=== PATIENT | male | born 1970 | race African-American/Black ===

== ENCOUNTER 2016-12-13 18:15 | Emergency (ER) | payer SELFPAY ==
[2016-12-13] MEDS ORDERED: DIAZEPAM INJ 10 MG/2 ML DISP.SYRIN IM ONE (19:24)
--- NOTE | 2016-12-13 19:26 | ER Document Report ---
ED General - General Chief Complaint: Arm Pain Stated Complaint: RIGHT HAND NUMBNESS Time Seen by Provider: 12/13/16 19:13 Notes: Patient is a 46-year-old male who comes emergency department for chief complaint of worsening symptoms of shooting numbness and tingling sensation mainly in his right arm and right hand, occasionally also feels that his left arm/hand, states he also occasionally feels tingling in his feet. He admits that he has difficulty with rotation of the right shoulder and had an injury to this while lifting at work about 2 weeks ago. Denies any impact injury to the shoulder. He denies headache, visual changes, denies any other sources of pain. States that although he has had increased shoulder pain for the past 2 weeks he has had these symptoms ongoing for months. No daily medications, denies any known past medical history. He smokes one half pack per day. TRAVEL OUTSIDE OF THE [place] IN LAST 30 DAYS: No - Related Data Allergies/Adverse Reactions: FISH Allergy (Uncoded 12/13/16 18:23) Past Medical History - General Information source: Patient - Social History Smoking Status: Current Every Day Smoker Chew tobacco use (# tins/day): No Frequency of alcohol use: Social Drug Abuse: None Lives with: Family Family History: Reviewed & Not Pertinent Patient has suicidal ideation: No Patient has homicidal ideation: No - Medical History Medical History: Negative Renal/ Medical History: Denies: Hx Peritoneal Dialysis Surgical Hx: Negative - Immunizations Immunizations up to date: Yes Hx Diphtheria, Pertussis, Tetanus Vaccination: Yes Review of Systems - Review of Systems Constitutional: No symptoms reported EENT: No symptoms reported Cardiovascular: No symptoms reported Respiratory: No symptoms reported Gastrointestinal: No symptoms reported Genitourinary: No symptoms reported Male Genitourinary: No symptoms reported Musculoskeletal: See HPI Skin: No symptoms reported Hematologic/Lymphatic: No symptoms reported Neurological/Psychological: See HPI Physical Exam - Vital signs Vitals: Temp Pulse Resp BP Pulse Ox 98.0 F 75 16 192/111 H 98 12/13/16 18:23 12/13/16 18:23 12/13/16 18:23 12/13/16 18:23 12/13/16 18:23 Interpretation: Normal - General General appearance: Appears well In distress: None - HEENT Head: Normocephalic, Atraumatic Eyes: Normal Conjunctiva: Normal Extraocular movements intact: Yes Eyelashes: Normal Pupils: PERRL Nasal: Normal Mouth/Lips: Normal Mucous membranes: Normal Pharynx: Normal Neck: Normal - Respiratory Respiratory status: No respiratory distress Chest status: Nontender Breath sounds: Normal. No: Decreased air movement, Wheezing Chest palpation: Normal - Cardiovascular Rhythm: Regular. No: Tachycardia Heart sounds: Normal auscultation, S1 appreciated, S2 appreciated Murmur: No - Abdominal Inspection: Normal Distension: No distension Bowel sounds: Normal Tenderness: Nontender. No: Tender, Guarding Organomegaly: No organomegaly - Back Back: Normal, Nontender. 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 General lower extremity: Normal inspection, Nontender, Normal color, Normal ROM , Normal temperature, Normal weight bearing. No: Mabel's sign - Neurological Neuro grossly intact: Yes Cognition: Normal Orientation: AAOx4 Trout Coma Scale Eye Opening: Spontaneous [place] Coma Scale Verbal: Oriented Shavonne Coma Scale Motor: Obeys Commands Trout Coma Scale Total: 15 Speech: Normal Motor strength normal: LUE, RUE, LLE, RLE Sensory: Normal - Psychological Associated symptoms: Normal affect, Normal mood - Skin Skin Temperature: Warm Skin Moisture: Dry Skin Color: Normal Course - Re-evaluation Re-evalutation: Neurological exam is normal. 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 Patient had a lifting injury of the shoulder on exam 2 weeks ago, has deficits in the shoulder on exam, given valium as a result. Patient had near resolution of his symptoms of his right arm/hand/shoulder on re -examination. CBC unremarkable, chemistry shows mildly elevated creatinine at 1.27 with no comparison, electrolytes unremarkable. Patient very hypertensive initially, after he was medicated and comfortable his blood pressure is 150s over 90s. I did discuss treatment of blood pressure to avoid worsening renal functioning, patient referred to primary care, he states he will absolutely follow-up, also states agreement with this. Will treat patient symptomatically for shoulder/trapezius injury, will keep anti-inflammatory to a minimum and use Valium in conjunction, advised him to hydrate well, discussed orthopedic follow- up for additional evaluation and treatment of the shoulder if symptoms continue , given work release. Discussed return precautions, patient states understanding and agreement. - Vital Signs Vital signs: Temp Pulse Resp BP Pulse Ox 97.7 F 60 15 163/98 H 99 12/13/16 21:56 12/13/16 21:56 12/13/16 21:56 12/13/16 21:56 12/13/16 21:56 - Laboratory Result Diagrams: 12/13/16 19:37 12/13/16 19:37 Laboratory results interpreted by me: 12/13/16 19:37 Creatinine 1.27 H Discharge - Discharge Clinical Impression: Right arm pain, Elevated blood pressure reading Right shoulder pain Qualifiers: Chronicity: acute Qualified Code(s): M25.511 - Pain in right shoulder Condition: Stable Disposition: HOME, SELF-CARE Additional Instructions: The neck imaging is normal. Your symptoms appear to be from a musculoskeletal problem, probably your shoulder injury. Take the naproxen as directed, drink plenty of fluids, rest the shoulder, and try applying heat to your neck and icing your shoulder. If symptoms continue follow up with the Orthopedics referral. Your blood pressure is borderline elevated and your kidney functioning is borderline as well. Please follow up with the community clinic referral for additional management. Return to the ED for any concerning or worsening symptoms. Prescriptions: Diazepam [Valium 5 mg Tablet] 1 - 2 tab PO TID #20 tablet Naproxen [Naprosyn 250 mg Tablet] 250 mg PO DAILY PRN #20 tablet PRN Reason: Forms: Return to Work Referrals: ERICK PENN DO [ACTIVE STAFF] - Follow up as needed [facility] [Provider Group] - Follow up in 1 week
[2016-12-13 20:02] LABS: ABSOLUTE BASOPHILS # (AUTO) 0.1 10^3/uL (0.0-0.2); ABSOLUTE EOSINOPHILS # (AUTO) 0.1 10^3/uL (0.0-0.6); ABSOLUTE LYMPHOCYTES (AUTO) 1.9 10^3/uL (0.5-4.7); ABSOLUTE MONOCYTES (AUTO) 0.5 10^3/uL (0.1-1.4); ABSOLUTE NEUT (AUTO) 2.7 10^3/uL (1.7-8.2); BASOPHILS % (AUTO) 1.2 % (0-2); EOSINOPHILS % (AUTO) 2.1 % (0-6); HEMATOCRIT 47.8 % (37.9-51.0); HEMOGLOBIN 15.9 g/dL (13.5-17.0); HGB HCT DIFFERENCE -0.1; LYMPHOCYTES % (AUTO) 36.5 % (13-45); MEAN CORPUSCULAR HEMOGLOBIN 32.2 pg (27.0-33.4); MEAN CORPUSCULAR HGB CONC 33.3 g/dL (32.0-36.0); MEAN CORPUSCULAR VOLUME 97 fl (80-97); MONOCYTES % (AUTO) 9.4 % (3-13); RED BLOOD COUNT 4.95 10^6/uL (4.35-5.55); SEGMENTED NEUTROPHILS % (AUTO) 50.8 % (42-78); WHITE BLOOD COUNT 5.3 10^3/uL (4.0-10.5)
[2016-12-13 20:16] LABS: ANION GAP 11 (5-19); BLOOD UREA NITROGEN 13 mg/dL (7-20); CALCIUM 9.3 mg/dL (8.4-10.2); CARBON DIOXIDE 27 mmol/L (22-30); CHLORIDE 105 mmol/L (98-107); CREATININE RESULT 1.27 mg/dL (0.52-1.25); GLUCOSE 81 mg/dL (75-110); POTASSIUM 3.9 mmol/L (3.6-5.0); SODIUM 143.3 mmol/L (137-145)
--- NOTE | 2016-12-13 20:59 | RADIOLOGY REPORT (SQ) ---
EXAM DESCRIPTION: CERV SP 4 OR 5 VIEWS COMPLETED DATE/TIME: 12/13/2016 8:32 pm REASON FOR STUDY: tingling and shooting pain into arms/hand COMPARISON: None. NUMBER OF VIEWS: Five views. TECHNIQUE: AP, lateral, obliques and odontoid radiographic images acquired of the cervical spine. LIMITATIONS: None. FINDINGS: MINERALIZATION: Normal. ALIGNMENT: Anatomic. VERTEBRAE: Vertebral bodies of normal height. DISCS: Generally, maintained disc heights. Mild anterior osteophytes throughout. FORAMINA: No osteophytes or foraminal narrowing. LATERAL AND POSTERIOR ELEMENTS: Facets, lateral masses and spinous processes without significant find ings. HARDWARE: None in the spine. SOFT TISSUES: No masses or calcifications. Lung apices clear. OTHER: No other significant finding. IMPRESSION: No spinal malalignment, fracture or bone lesion. Patent neural foramina. TECHNICAL DOCUMENTATION: JOB ID: [id number] [employer]- All Rights Reserved
[2016-12-13 21:57] VITALS: BP 163/98
== END 2016-12-13 22:07 | disposition home or self-care (01) ==
LOC: ER 18:15
DX: R22.0 Localized swelling, mass and lump, head (principal); R03.0 Elevated blood-pressure reading, without diagnosis of hypertension; M79.601 Pain in right arm; F17.200 Nicotine dependence, unspecified, uncomplicated
CPT/HCPCS: 99284; 96372; 36415; 85025; 80048; 72050; J3360

== ENCOUNTER 2017-01-07 11:44 | Emergency (ER) | payer SELFPAY ==
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
[2017-01-07 15:34] VITALS: BP 159/95
== END 2017-01-07 15:20 | disposition home or self-care (01) ==
LOC: ER 11:44
DX: H10.33 Unspecified acute conjunctivitis, bilateral (principal); I10 Essential (primary) hypertension; J02.9 Acute pharyngitis, unspecified; H92.01 Otalgia, right ear; F17.200 Nicotine dependence, unspecified, uncomplicated
CPT/HCPCS: 87070; 87880; 99283

== ENCOUNTER 2017-02-10 15:54 | Emergency (ER) | payer SELFPAY ==
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
[2017-02-10 16:32] LABS: ABSOLUTE LYMPHOCYTES (AUTO) 2.4 10^3/uL (0.5-4.7); ABSOLUTE MONOCYTES (AUTO) 0.5 10^3/uL (0.1-1.4); ABSOLUTE NEUT (AUTO) 3.2 10^3/uL (1.7-8.2); BASOPHILS % (AUTO) 0.8 % (0-2); EOSINOPHILS % (AUTO) 0.5 % (0-6); HEMATOCRIT 45.3 % (37.9-51.0); HEMOGLOBIN 15.5 g/dL (13.5-17.0); HGB HCT DIFFERENCE 1.2; LYMPHOCYTES % (AUTO) 38.8 % (13-45); MEAN CORPUSCULAR HEMOGLOBIN 32.7 pg (27.0-33.4); MEAN CORPUSCULAR HGB CONC 34.2 g/dL (32.0-36.0); MEAN CORPUSCULAR VOLUME 96 fl (80-97); MONOCYTES % (AUTO) 7.3 % (3-13); RED BLOOD COUNT 4.74 10^6/uL (4.35-5.55); RED CELL DISTRIBUTION WIDTH 14.6 % (11.5-14.0); SEGMENTED NEUTROPHILS % (AUTO) 52.6 % (42-78); WHITE BLOOD COUNT 6.2 10^3/uL (4.0-10.5)
[2017-02-10 16:50] LABS: ALANINE AMINOTRANSFERASE 32 U/L (21-72); ALBUMIN 4.7 g/dL (3.5-5.0); ALCOHOL 221 mg/dL (NONE DETECTED); ALKALINE PHOSPHATASE 40 U/L (38-126); ANION GAP 16 (5-19); ASPARTATE AMINO TRANSFERASE 37 U/L (17-59); BILIRUBIN,DIRECT 0.4 mg/dL (0.0-0.4); BILIRUBIN,TOTAL 0.6 mg/dL (0.2-1.3); BLOOD UREA NITROGEN 12 mg/dL (7-20); CALCIUM 9.3 mg/dL (8.4-10.2); CARBON DIOXIDE 23 mmol/L (22-30); CHLORIDE 108 mmol/L (98-107); CREATININE RESULT 1.38 mg/dL (0.52-1.25); GLUCOSE 77 mg/dL (75-110); POTASSIUM 4.1 mmol/L (3.6-5.0); SODIUM 146.5 mmol/L (137-145); TOTAL PROTEIN 7.8 g/dL (6.3-8.2)
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
[2017-02-10 18:13] VITALS: BP 161/91
[2017-02-10 21:38] LABS: AMORPHOUS SEDIMENT,URINE TRACE /HPF; APPEARANCE,URINE TURBID; BILIRUBIN,URINE NEGATIVE (NEGATIVE); GLUCOSE, URINE NEGATIVE (NEGATIVE); KETONES,URINE NEGATIVE (NEGATIVE); LEUKOCYTE ESTERASE,URINE NEGATIVE (NEGATIVE); NITRITE,URINE NEGATIVE (NEGATIVE); PROTEIN,URINE NEGATIVE (NEGATIVE); URINE SPECIFIC GRAVITY 1.025; UROBILINOGEN,URINE NEGATIVE mg/dL (<2.0)
[2017-02-10 21:52] LABS: URINE BARBITURATES SCREEN NEGATIVE; URINE METHADONE SCREEN NEGATIVE; URINE OPIATES LOW NEGATIVE; URINE PHENCYCLIDINE SCREEN NEGATIVE
--- NOTE | 2017-02-11 13:29 | EKG REPORT ---
SEVERITY:- ABNORMAL ECG - SINUS RHYTHM FIRST DEGREE AV BLOCK ABNORMAL T, CONSIDER ISCHEMIA, DIFFUSE LEADS : Confirmed by: Lori Moreno 11-Feb-2017 13:28:45
== END 2017-02-10 18:14 | disposition home or self-care (01) ==
LOC: ER 15:54
DX: F10.129 Alcohol abuse with intoxication, unspecified (principal); Y90.7 Blood alcohol level of 200-239 mg/100 ml; S41.012A Laceration without foreign body of left shoulder, initial encounter; X78.1XXA Intentional self-harm by knife, initial encounter; F17.210 Nicotine dependence, cigarettes, uncomplicated; I10 Essential (primary) hypertension; Z91.013 Allergy to seafood
CPT/HCPCS: 36415; 80053; 80307; 81001; 85025; 93005; 93010; 99284

== ENCOUNTER 2017-07-04 12:10 | Observation (INO) | payer SELFPAY ==
--- NOTE | 2017-07-04 12:50 | EKG REPORT ---
SEVERITY:- ABNORMAL ECG - SINUS RHYTHM ABNORMAL T, CONSIDER ISCHEMIA, ANT-LAT LEADS BORDERLINE ST ELEVATION, ANTERIOR LEADS : Confirmed by: Marilu Shepherd MD 04-Jul-2017 12:48:15
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
--- NOTE | 2017-07-04 13:49 | RADIOLOGY REPORT (SQ) ---
EXAM DESCRIPTION: CHEST PA/LAT COMPLETED DATE/TIME: 07/04/2017 1:39 pm REASON FOR STUDY: Dry cough, smoker, inspiratory expiratory pain COMPARISON: None. EXAM PARAMETERS: NUMBER OF VIEWS: two views TECHNIQUE: Digital Frontal and Lateral radiographic views of the chest acquired. RADIATION DOSE: NA LIMITATIONS: none FINDINGS: LUNGS AND PLEURA: Patchy right lower lobe airspace disease. Lungs and pleural spaces othe rwise clear. MEDIASTINUM AND HILAR STRUCTURES: No masses or contour abnormalities. HEART AND VASCULAR STRUCTURES: Heart normal size. No evidence for failure. BONES: No acute findings. HARDWARE: None in the chest. OTHER: No other significant finding. IMPRESSION: PATCHY RIGHT LOWER LOBE AIRSPACE DISEASE MAY REPRESENT DEVELOPING PNEUMONIA. RECOMMEND FOLLOWUP RADIOGRAPHS 4 TO 6 WEEKS TO ENSURE RESOLUTION. TECHNICAL DOCUMENTATION: JOB ID: [id number] [employer]- All Rights Reserved
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
[2017-07-04] MEDS ORDERED: AMOXICILLIN TR/POT CLAVULANATE 500-125 MG TAB PO ONE (13:55)
[2017-07-04] MEDS ORDERED: ASPIRIN 325 MG TABLET PO ONE (13:55)
[2017-07-04] MEDS ORDERED: AZITHROMYCIN 500 MG in DEXTROSE 5%-WATER 250 ML IV SCH (14:00)
[2017-07-04 14:22] LABS: ABSOLUTE BASOPHILS # (AUTO) 0.1 10^3/uL (0.0-0.2); ABSOLUTE EOSINOPHILS # (AUTO) 0.2 10^3/uL (0.0-0.6); ABSOLUTE LYMPHOCYTES (AUTO) 2.3 10^3/uL (0.5-4.7); ABSOLUTE MONOCYTES (AUTO) 0.4 10^3/uL (0.1-1.4); ABSOLUTE NEUT (AUTO) 4.4 10^3/uL (1.7-8.2); EOSINOPHILS % (AUTO) 2.7 % (0-6); HEMOGLOBIN 15.6 g/dL (13.5-17.0); LYMPHOCYTES % (AUTO) 31.4 % (13-45); MEAN CORPUSCULAR HEMOGLOBIN 31.7 pg (27.0-33.4); MEAN CORPUSCULAR HGB CONC 33.9 g/dL (32.0-36.0); MEAN CORPUSCULAR VOLUME 93 fl (80-97); MONOCYTES % (AUTO) 5.9 % (3-13); PLATELET COUNT 231 10^3/uL (150-450); RED BLOOD COUNT 4.93 10^6/uL (4.35-5.55); RED CELL DISTRIBUTION WIDTH 14.3 % (11.5-14.0); TOTAL CELLS COUNTED % (AUTO) 100 %; WHITE BLOOD COUNT 7.5 10^3/uL (4.0-10.5)
[2017-07-04 15:23] LABS: ALANINE AMINOTRANSFERASE 26 U/L (21-72); ALBUMIN 3.7 g/dL (3.5-5.0); ALKALINE PHOSPHATASE 65 U/L (38-126); ANION GAP 11 (5-19); ASPARTATE AMINO TRANSFERASE 24 U/L (17-59); BILIRUBIN,DIRECT 0.3 mg/dL (0.0-0.4); BILIRUBIN,TOTAL 0.3 mg/dL (0.2-1.3); BLOOD UREA NITROGEN 14 mg/dL (7-20); CALCIUM 9.3 mg/dL (8.4-10.2); CARBON DIOXIDE 26 mmol/L (22-30); CHLORIDE 104 mmol/L (98-107); CREATINE KINASE 299 U/L (55-170); GLUCOSE 80 mg/dL (75-110); POTASSIUM 3.9 mmol/L (3.6-5.0); SODIUM 140.7 mmol/L (137-145); TOTAL PROTEIN 6.4 g/dL (6.3-8.2)
[2017-07-04 15:34] LABS: CREATINE KINASE MB 1.56 ng/mL (<4.55); TROPONIN I 0.015 ng/mL
[2017-07-04] MEDS ORDERED: ONDANSETRON HCL INJ/PF 4 MG/2 ML SDV IV PRN (15:58)
[2017-07-04] MEDS ORDERED: NITROGLYCERIN 0.4 MG/TAB 25 TAB/BOTTLE SL PRN (15:58)
[2017-07-04] MEDS ORDERED: HYDRALAZINE HCL INJ/PF 20 MG/1 ML SDV IV ONE (17:30)
--- NOTE | 2017-07-04 17:49 | RADIOLOGY REPORT (SQ) ---
EXAM DESCRIPTION: CT CHEST WITH COMPLETED DATE/TIME: 07/04/2017 4:59 pm REASON FOR STUDY: chest wall tenderness COMPARISON: Chest x-ray dated 07/04/2017 TECHNIQUE: CT scan of the chest performed using helical scanning technique with dynamic intravenous contrast injection. Images reviewed with lung, soft tissue and bone windows. Reconstructed coronal and sagittal MPR images reviewed. All images stored on PACS. All CT scanners at this facility use dose modulation, iterative reconstruction, and/or weight based d osing when appropriate to reduce radiation dose to as low as reasonably achievable (ALARA). [facility]: Dose Right [facility]: CareDose [facility]: Dose Right [facility]: Teradose 4D [facility]: Seventymm CONTRAST TYPE AND DOSE: contrast/concentration: Isovue 370.00 mg/ml; Total Contrast Delivered: 79.0 ml; Total Saline Delivered: 44.0 ml RENAL FUNCTION: None required. The patient is less than 50 years old. RADIATION DOSE: CT Rad equipment meets quality standard of care and radiation dose reduction techniq ues were employed. CTDIvol: 12.6 mGy. DLP: 492 mGy-cm. . LIMITATIONS: None. FINDINGS: LUNGS AND PLEURA: There are some minimal linear densities in the right lung base most cons istent with atelectatic changes although I cannot exclude a minimal infiltrate. A small focal pneuma tocele is identified in the right lung base posterolaterally. HILAR AND MEDIASTINAL STRUCTURES: No identified masses or abnormal nodes. HEART AND VASCULAR STRUCTURES: No aneurysm or dissection. No central pulmonary emboli. No pericardi al effusion. HARDWARE: None in the chest. UPPER ABDOMEN: No significant findings. Limited exam. THYROID AND OTHER SOFT TISSUES: No masses. No adenopathy. BONES: No significant finding. OTHER: No other significant finding. IMPRESSION: Minimal right basilar densities as noted above. Other findings as noted above. TECHNICAL DOCUMENTATION: JOB ID: [id number] Quality ID # [id number]: Final reports with documentation of one or more dose reduction techniques (e.g., Au tomated exposure control, adjustment of the mA and/or kV according to patient size, use of iterative reconstruction technique) 2010 [employer]- All Rights Reserved
[2017-07-04] MEDS: CLONIDINE HCL 0.1 MG TABLET PO PRN (20:05)
[2017-07-04] MEDS ORDERED: ATORVASTATIN CALCIUM 40 MG TABLET PO SCH (22:00)
[2017-07-05 04:14] LABS: CHOLESTEROL 130.64 mg/dL (0-200); TRIGLYCERIDES 65 mg/dL (<150)
[2017-07-05 04:30] LABS: DIRECT LDL 64 mg/dL (<100)
[2017-07-05] MEDS ORDERED: LANSOPRAZOLE 30 MG TAB.RAP.DR PO SCH (06:00)
[2017-07-05] MEDS ORDERED: LISINOPRIL 10 MG TABLET PO SCH (10:00)
[2017-07-05] MEDS ORDERED: ASPIRIN 81 MG TABLET, CHEWABLE PO SCH (10:00)
[2017-07-05] MEDS ORDERED: LEVOFLOXACIN 750 MG TABLET PO SCH (10:00)
[2017-07-05] MEDS ORDERED: METOPROLOL SUCCINATE 25 MG TAB.SR.24H PO SCH (10:00)
--- NOTE | 2017-07-05 10:26 | RADIOLOGY REPORT (SQ) ---
EXAM DESCRIPTION: U/S CHEST COMPLETED DATE/TIME: 07/05/2017 10:12 am REASON FOR STUDY: chest nodule left pectorial muscle COMPARISON: Correlation made to CT from 07/04/2017. TECHNIQUE: Dynamic and static grayscale images acquired of the localized site of clinical concern an d recorded on PACS. Additional selected color Doppler and spectral images recorded. SITE OF CONCERN: Left pectoralis. LIMITATIONS: None. FINDINGS: SKIN AND SUBCUTANEOUS TISSUES: There is a subtle echogenic focus corresponding to palpable abnormality left pectoralis measuring approximately 3.8 x 2.3 x 3.2 cm which may correspond to metal lic foreign body present on prior CT. No additional lesions identified. IMPRESSION: PATIENT IS NOTED TO HAVE RETAINED METALLIC FOREIGN BODY LEFT PECTORALIS SEEN ON CT 07/04 WHICH MAY CORRESPOND TO PALPABLE ABNORMALITY IS SEEN ON TODAY'S ULTRASOUND. TECHNICAL DOCUMENTATION: JOB ID: [id number] [employer]- All Rights Reserved
[2017-07-05] MEDS: CLONIDINE HCL 0.1 MG TABLET PO PRN (14:03)
[2017-07-05] MEDS ORDERED: AMLODIPINE BESYLATE 5 MG TABLET PO ONE (14:30)
[2017-07-05] MEDS ORDERED: HYDRALAZINE HCL INJ/PF 20 MG/1 ML SDV IV PRN (14:50)
[2017-07-05] MEDS ORDERED: HYDRALAZINE HCL INJ/PF 20 MG/1 ML SDV IV ONE (15:30)
[2017-07-05] MEDS ORDERED: CLONIDINE HCL 0.1 MG TABLET PO ONE (16:39)
[2017-07-05] MEDS ORDERED: OXYCODONE-ACETAMINOPHEN 5-325 MG TABLET PO ONE (17:01)
[2017-07-05 17:02] VITALS: BP 172/96
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
--- NOTE | 2017-07-06 09:43 | EKG REPORT ---
SEVERITY:- ABNORMAL ECG - SINUS RHYTHM PROBABLE LVH WITH SECONDARY REPOL ABNRM : Confirmed by: Lori Moreno 06-Jul-2017 09:42:33
== END 2017-07-05 17:31 | disposition home or self-care (01) ==
LOC: ER 12:10 → EH 16:13 → 4S 17:57
PROVIDERS: ADMIT Pediatrics; ATTEND Pediatrics
DX: R07.9 Chest pain, unspecified (principal); J18.1 Lobar pneumonia, unspecified organism; F17.200 Nicotine dependence, unspecified, uncomplicated; F10.10 Alcohol abuse, uncomplicated; I16.1 Hypertensive emergency; M79.5 Residual foreign body in soft tissue; F12.10 Cannabis abuse, uncomplicated; M79.671 Pain in right foot; M79.672 Pain in left foot; Z79.82 Long term (current) use of aspirin; Z79.899 Other long term (current) drug therapy; Z87.828 Personal history of other (healed) physical injury and trauma
CPT/HCPCS: 93005; 99285; 96374; 36415 ×2; 82553; 82550; 85025; 80053; 84484 ×2; 83036; 80061; 71020; 76604; 71260; 93010; J0360 ×2; J3490 ×2

== ENCOUNTER 2017-07-07 17:37 | Inpatient (IN) | payer SELFPAY ==
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
[2017-07-07 19:37] LABS: APPEARANCE,URINE CLEAR; BILIRUBIN,URINE NEGATIVE (NEGATIVE); COLOR,URINE YELLOW; GLUCOSE, URINE NEGATIVE (NEGATIVE); KETONES,URINE NEGATIVE (NEGATIVE); LEUKOCYTE ESTERASE,URINE TRACE (NEGATIVE); NITRITE,URINE NEGATIVE (NEGATIVE); PROTEIN,URINE NEGATIVE (NEGATIVE); URINE SPECIFIC GRAVITY 1.017; UROBILINOGEN,URINE NEGATIVE mg/dL (<2.0)
[2017-07-07 19:41] LABS: ABSOLUTE LYMPHOCYTES (AUTO) 1.4 10^3/uL (0.5-4.7); ABSOLUTE MONOCYTES (AUTO) 0.3 10^3/uL (0.1-1.4); ABSOLUTE NEUT (AUTO) 6.2 10^3/uL (1.7-8.2); BASOPHILS % (AUTO) 0.5 % (0-2); EOSINOPHILS % (AUTO) 0.4 % (0-6); HEMATOCRIT 47.2 % (37.9-51.0); HEMOGLOBIN 15.9 g/dL (13.5-17.0); LYMPHOCYTES % (AUTO) 17.9 % (13-45); MEAN CORPUSCULAR HEMOGLOBIN 31.4 pg (27.0-33.4); MEAN CORPUSCULAR HGB CONC 33.7 g/dL (32.0-36.0); MEAN CORPUSCULAR VOLUME 93 fl (80-97); MONOCYTES % (AUTO) 3.4 % (3-13); PLATELET COUNT 247 10^3/uL (150-450); RED BLOOD COUNT 5.08 10^6/uL (4.35-5.55); RED CELL DISTRIBUTION WIDTH 13.9 % (11.5-14.0); SEGMENTED NEUTROPHILS % (AUTO) 77.8 % (42-78); TOTAL CELLS COUNTED % (AUTO) 100 %
[2017-07-07 20:00] LABS: ALANINE AMINOTRANSFERASE 23 U/L (21-72); ALBUMIN 4.2 g/dL (3.5-5.0); ALKALINE PHOSPHATASE 44 U/L (38-126); ANION GAP 10 (5-19); ASPARTATE AMINO TRANSFERASE 24 U/L (17-59); BILIRUBIN,DIRECT 0.2 mg/dL (0.0-0.4); BILIRUBIN,TOTAL 0.3 mg/dL (0.2-1.3); BLOOD UREA NITROGEN 12 mg/dL (7-20); CALCIUM 10.3 mg/dL (8.4-10.2); CARBON DIOXIDE 28 mmol/L (22-30); CHLORIDE 104 mmol/L (98-107); GLUCOSE 108 mg/dL (75-110); POTASSIUM 4.3 mmol/L (3.6-5.0); SODIUM 141.6 mmol/L (137-145); TOTAL PROTEIN 6.7 g/dL (6.3-8.2)
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
--- NOTE | 2017-07-07 21:04 | RADIOLOGY REPORT (SQ) ---
EXAM DESCRIPTION: CT ABD/PELVIS WITH IV ONLY COMPLETED DATE/TIME: 07/07/2017 8:40 pm REASON FOR STUDY: diffuse abd pain COMPARISON: None. TECHNIQUE: CT scan of the abdomen and pelvis performed using helical scanning technique with dynamic intravenous contrast injection. No oral contrast. Images reviewed with lung, soft tissue, and bone windows. Reconstructed coronal and sagittal MPR images reviewed. Delayed images for evaluation of the urinary system also acquired. All images stored on PACS. All CT scanners at this facility use dose modulation, iterative reconstruction, and/or weight based d osing when appropriate to reduce radiation dose to as low as reasonably achievable (ALARA). [facility]: Dose Right [facility]: CareDose [facility]: Dose Right [facility]: Teradose 4D [facility]: CoNarrative CONTRAST TYPE AND DOSE: contrast/concentration: Isovue 370.00 mg/ml; Total Contrast Delivered: 100.0 ml; Total Saline Delivered: 45.1 ml RENAL FUNCTION: Creatinine 1.06 RADIATION DOSE: CT Rad equipment meets quality standard of care and radiation dose reduction techniq ues were employed. CTDIvol: 7.9 - 11.2 mGy. DLP: 1018 mGy-cm.. LIMITATIONS: None. FINDINGS: LOWER CHEST: No significant findings. No nodules or infiltrates. LIVER: Normal size. No masses. No dilated ducts. SPLEEN: Normal size. No focal lesions. PANCREAS: No masses. No significant calcifications. No adjacent inflammation or peripancreatic fluid collections. Pancreatic duct not dilated. GALLBLADDER: No identified stones by CT criteria. No inflammatory changes to suggest cholecystitis. ADRENAL GLANDS: No significant masses or asymmetry. RIGHT KIDNEY AND URETER: No solid masses. No significant calcifications. No hydronephrosis or hyd roureter. LEFT KIDNEY AND URETER: No solid masses. No significant calcifications. No hydronephrosis or hydr oureter. AORTA AND VESSELS: No aneurysm. No dissection. Renal arteries, SMA, celiac without stenosis. RETROPERITONEUM: No retroperitoneal adenopathy, hemorrhage or masses. BOWEL AND PERITONEAL CAVITY: No masses or inflammatory changes. No free fluid or peritoneal masses. APPENDIX: Normal. PELVIS: Free fluid in the pelvis. Normal bladder. No masses. ABDOMINAL WALL: No masses. No hernias. BONES: No significant or acute findings. OTHER: No other significant finding. IMPRESSION: Free fluid in the pelvis of undetermined origin. TECHNICAL DOCUMENTATION: JOB ID: [id number] Quality ID # [id number]: Final reports with documentation of one or more dose reduction techniques (e.g., Au tomated exposure control, adjustment of the mA and/or kV according to patient size, use of iterative reconstruction technique) 2010 [employer]- All Rights Reserved
[2017-07-07] MEDS ORDERED: PIPERACILLIN/TAZOBACTAM 3.375 GM VIAL IV ONE (22:03)
[2017-07-07] MEDS ORDERED: IPRATROPIUM/ALBUTEROL 0.5-2.5 MG/3 ML AMPUL NEB PRN (22:07)
[2017-07-07] MEDS ORDERED: ONDANSETRON HCL INJ/PF 4 MG/2 ML SDV IV PRN (22:07)
[2017-07-07] MEDS ORDERED: DIAZEPAM 5 MG TABLET PO ONE (22:07)
[2017-07-07] MEDS ORDERED: ACETAMINOPHEN 325 MG TABLET PO PRN (22:07)
[2017-07-07] MEDS ORDERED: MAG HYDROX/AL HYDROX/SIMETH SUSP 30 ML UDCUP PO PRN (22:07)
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
[2017-07-07] MEDS ORDERED: PIPERACILLIN SODIUM/TAZOBACTAM 4.5 GM in NORMAL SALINE 100 ML IV ONE (22:45)
[2017-07-08] MEDS: MORPHINE SULFATE 10 MG/ML INJ IV PRN ×2 (00:30→06:15)
[2017-07-08] MEDS: NORMAL SALINE 1000 ML 1,000 ML IV SCH ×3 (00:31→12:40)
[2017-07-08] MEDS: METRONIDAZOLE 500 MG TABLET PO SCH ×5 (00:41→23:24)
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
[2017-07-08 05:42] LABS: ABSOLUTE EOSINOPHILS # (AUTO) 0.1 10^3/uL (0.0-0.6); ABSOLUTE LYMPHOCYTES (AUTO) 2.4 10^3/uL (0.5-4.7); ABSOLUTE MONOCYTES (AUTO) 0.6 10^3/uL (0.1-1.4); ABSOLUTE NEUT (AUTO) 5.9 10^3/uL (1.7-8.2); BASOPHILS % (AUTO) 0.4 % (0-2); EOSINOPHILS % (AUTO) 1.4 % (0-6); HEMATOCRIT 40.7 % (37.9-51.0); LYMPHOCYTES % (AUTO) 26.8 % (13-45); MEAN CORPUSCULAR HEMOGLOBIN 31.8 pg (27.0-33.4); MEAN CORPUSCULAR HGB CONC 34.5 g/dL (32.0-36.0); MEAN CORPUSCULAR VOLUME 92 fl (80-97); MONOCYTES % (AUTO) 6.6 % (3-13); PLATELET COUNT 202 10^3/uL (150-450); RED BLOOD COUNT 4.41 10^6/uL (4.35-5.55); RED CELL DISTRIBUTION WIDTH 13.6 % (11.5-14.0); SEGMENTED NEUTROPHILS % (AUTO) 64.8 % (42-78); TOTAL CELLS COUNTED % (AUTO) 100 %; WHITE BLOOD COUNT 9.1 10^3/uL (4.0-10.5)
[2017-07-08 06:00] LABS: ANION GAP 7 (5-19); BLOOD UREA NITROGEN 10 mg/dL (7-20); CARBON DIOXIDE 27 mmol/L (22-30); CHLORIDE 107 mmol/L (98-107); GLUCOSE 90 mg/dL (75-110); POTASSIUM 3.8 mmol/L (3.6-5.0); SODIUM 141.3 mmol/L (137-145)
[2017-07-08] MEDS ORDERED: PIPERACILLIN/TAZOBACTAM 4.5 GM VIAL IV ONE (06:01)
[2017-07-08] MEDS: HEPARIN SOD (PORCINE) 5,000 UNIT/ML 1 ML SYRINGE SUBCUT SCH ×3 (06:02→23:25)
[2017-07-08] MEDS: PIPERACILLIN SODIUM/TAZOBACTAM 4.5 GM in NORMAL SALINE 100 ML IV SCH ×4 (06:05→23:25)
[2017-07-08] MEDS: AMLODIPINE BESYLATE 5 MG TABLET PO SCH (09:17)
[2017-07-08] MEDS: LISINOPRIL 10 MG TABLET PO SCH (09:18)
[2017-07-08] MEDS: HYDROCHLOROTHIAZIDE 12.5 MG CAPSULE PO SCH (09:18)
--- NOTE | 2017-07-08 09:34 | PDOC PROGRESS REPORT ---
Subjective Progress Note for:: 07/08/17 Subjective:: Lower abdominal pain Reason For Visit: DIVERTICULITIS ABD PAIN Physical Exam Vital Signs: Temp Pulse Resp BP Pulse Ox 97.6 F 70 16 147/82 H 96 07/08/17 06:22 07/08/17 06:22 07/08/17 06:22 07/08/17 06:22 07/08/17 06:22 General appearance: PRESENT: no acute distress, cooperative Respiratory exam: PRESENT: clear to auscultation tolu Cardiovascular exam: PRESENT: RRR GI/Abdominal exam: PRESENT: other - Mildly distended, firm but not rigid, diffuse abdominal tenderness much more so in the lower abdomen with voluntary guarding in the lower abdomen. No percussion tenderness and no rebound pain. No pain with pelvic shake. Neurological exam: PRESENT: alert, awake Psychiatric exam: PRESENT: appropriate affect Skin exam: PRESENT: warm Results Laboratory Results: 07/08/17 05:10 07/08/17 05:10 07/08/17 07/08/17 05:10 05:10 WBC 9.1 RBC 4.41 Hgb 14.0 Hct 40.7 MCV 92 MCH 31.8 MCHC 34.5 RDW 13.6 Plt Count 202 Seg Neutrophils % 64.8 Lymphocytes % 26.8 Monocytes % 6.6 Eosinophils % 1.4 Basophils % 0.4 Absolute Neutrophils 5.9 Absolute Lymphocytes 2.4 Absolute Monocytes 0.6 Absolute Eosinophils 0.1 Absolute Basophils 0.0 Sodium 141.3 Potassium 3.8 Chloride 107 Carbon Dioxide 27 Anion Gap 7 BUN 10 Creatinine 1.07 Est GFR ( Amer) > 60 Est GFR (Non-Af Amer) > 60 Glucose 90 Calcium 9.0 Impressions: Abdomen/Pelvis CT 07/07/17 19:05 IMPRESSION: Free fluid in the pelvis of undetermined origin. Assessment & Plan - Diagnosis (1) Acute abdominal pain Is this a current diagnosis for this admission?: Yes Plan: Uncertain of etiology of his abdominal pain. His vital signs are stable and he has no tachycardia (and he is not on a beta-maritza)and no leukocytosis and he does not appear toxic (he is alert and appropriate and in no distress, in fact he appears comfortable) however he has diffuse abdominal tenderness along with plus/minus peritoneal signs. His CT scan demonstrates free pelvic fluid but no other abnormalities on a CT without oral contrast. I have had a long discussion with the radiologist about the CT scan and we both feel that oral contrast may help delineate his abdominal pathology. Since he received a full IV dose of contrast, I will not repeat IV contrast. In light of his confounding exam and signs, I will keep the patient n.p.o., IV fluids, IV antibiotics, and repeat his CT scan with oral contrast.
[2017-07-08] MEDS ORDERED: [UNRECOGNIZED DRUG - OTHER] PO SCH (10:00)
[2017-07-08] MEDS ORDERED: HYDROCHLOROTHIAZIDE PO SCH (10:00)
[2017-07-08] MEDS ORDERED: LISINOPRIL PO SCH (10:00)
--- NOTE | 2017-07-08 11:36 | PDOC PROGRESS REPORT ---
Subjective Progress Note for:: 07/08/17 Subjective:: Complains of abdominal pain Reason For Visit: DIVERTICULITIS ABD PAIN Physical Exam Vital Signs: Temp Pulse Resp BP Pulse Ox 98.3 F 55 L 18 153/90 H 99 07/08/17 11:11 07/08/17 11:11 07/08/17 11:11 07/08/17 11:11 07/08/17 11:11 General appearance: PRESENT: no acute distress Eye exam: PRESENT: conjunctiva pink. ABSENT: scleral icterus Mouth exam: PRESENT: moist, tongue midline Neck exam: ABSENT: JVD Respiratory exam: PRESENT: chest wall tenderness, clear to auscultation tolu. ABSENT: rales, rhonchi, wheezes Cardiovascular exam: PRESENT: RRR. ABSENT: diastolic murmur, rubs, systolic murmur GI/Abdominal exam: PRESENT: normal bowel sounds, soft, tenderness - Diffuse tenderness. ABSENT: distended, guarding, mass, organolmegaly, rebound Extremities exam: ABSENT: calf tenderness, clubbing, pedal edema Neurological exam: PRESENT: alert, awake, oriented to person, oriented to place , oriented to time, oriented to situation, CN II-XII grossly intact. ABSENT: motor sensory deficit Psychiatric exam: PRESENT: appropriate affect Skin exam: PRESENT: dry, intact, warm. ABSENT: cyanosis, rash Results Laboratory Results: 07/08/17 05:10 07/08/17 05:10 07/08/17 07/08/17 05:10 05:10 WBC 9.1 RBC 4.41 Hgb 14.0 Hct 40.7 MCV 92 MCH 31.8 MCHC 34.5 RDW 13.6 Plt Count 202 Seg Neutrophils % 64.8 Lymphocytes % 26.8 Monocytes % 6.6 Eosinophils % 1.4 Basophils % 0.4 Absolute Neutrophils 5.9 Absolute Lymphocytes 2.4 Absolute Monocytes 0.6 Absolute Eosinophils 0.1 Absolute Basophils 0.0 Sodium 141.3 Potassium 3.8 Chloride 107 Carbon Dioxide 27 Anion Gap 7 BUN 10 Creatinine 1.07 Est GFR ( Amer) > 60 Est GFR (Non-Af Amer) > 60 Glucose 90 Calcium 9.0 Impressions: Abdomen/Pelvis CT 07/07/17 19:05 IMPRESSION: Free fluid in the pelvis of undetermined origin. Assessment & Plan - Diagnosis (1) Diverticulitis Is this a current diagnosis for this admission?: Yes Plan: The patient has free fluid in the abdomen. No obvious perforation. Surgery has evaluated the patient and we are repeating an abdominal CT with oral contrast. We will continue with the [place]. - Time Time Spent with patient: 25-34 minutes - Inpatient Certification Medical Necessity: Need for IV Antibiotics
--- NOTE | 2017-07-08 12:30 | RADIOLOGY REPORT (SQ) ---
EXAM DESCRIPTION: CT ABD/PELVIS ORAL ONLY COMPLETED DATE/TIME: 07/08/2017 11:58 am REASON FOR STUDY: Abd pain COMPARISON: CT chest 07/04/2017 CT abdomen 07/07/2017. TECHNIQUE: CT scan of the abdomen and pelvis performed without intravenous with oral contrast. Image s reviewed with lung, soft tissue, and bone windows. Reconstructed coronal and sagittal MPR images re viewed. All images stored on PACS. All CT scanners at this facility use dose modulation, iterative reconstruction, and/or weight based d osing when appropriate to reduce radiation dose to as low as reasonably achievable (ALARA). [facility]: Dose Right [facility]: CareDose [facility]: Dose Right [facility]: Teradose 4D [facility]: Smart Technologies RADIATION DOSE: CT Rad equipment meets quality standard of care and radiation dose reduction techniq ues were employed. CTDIvol: 9.7 mGy. DLP: 553 mGy-cm.mGy. LIMITATIONS: None. FINDINGS: LOWER CHEST: Increasing bibasilar opacities. New finding since 07/07/2017. NON-CONTRASTED LIVER, SPLEEN, ADRENALS: Evaluation limited by lack of IV contrast. No identified sign ificant masses. PANCREAS: No masses. No peripancreatic inflammatory changes. GALLBLADDER: No identified stones by CT criteria. No inflammatory changes to suggest cholecystitis. RIGHT KIDNEY AND URETER: No suspicious masses. Assessment limited by lack of IV contrast. No signif icant calcifications. No hydronephrosis or hydroureter. LEFT KIDNEY AND URETER: No suspicious masses. Assessment limited by lack of IV contrast. No signifi cant calcifications. No hydronephrosis or hydroureter. AORTA AND RETROPERITONEUM: No aneurysm. No retroperitoneal masses or adenopathy. BOWEL AND PERITONEAL CAVITY: No obvious masses or inflammatory changes. Free fluid persists in the p manuel. Diverticulosis without diverticulitis. APPENDIX: Normal. PELVIS, BLADDER, AND ABDOMINAL WALL:Free fluid is identified in the pelvis. No masses. BONES: No significant findings. OTHER: No other significant finding. IMPRESSION: Persistent free fluid in the pelvis without identified origin. Diverticulosis without diverticulitis. Increasing bibasilar opacities in the lungs. COMMENT: Quality ID # [id number]: Final reports with documentation of one or more dose reduction techniques (e.g., Automated exposure control, adjustment of the mA and/or kV according to patient size, use of iterative reconstruction technique) TECHNICAL DOCUMENTATION: JOB ID: [id number] [employer]- All Rights Reserved
--- NOTE | 2017-07-08 15:20 | PDOC PROGRESS REPORT ---
Subjective Progress Note for:: 07/08/17 Subjective:: Feels better. Much improved abdominal pain Reason For Visit: DIVERTICULITIS ABD PAIN Physical Exam Vital Signs: Temp Pulse Resp BP Pulse Ox 98.3 F 60 15 153/90 H 97 07/08/17 11:11 07/08/17 13:42 07/08/17 13:42 07/08/17 11:11 07/08/17 13:42 Intake & Output 07/07/17 07/08/17 07/09/17 06:59 06:59 06:59 Output Total 350 Balance -350 General appearance: PRESENT: no acute distress, cooperative Respiratory exam: PRESENT: clear to auscultation tolu Cardiovascular exam: PRESENT: RRR GI/Abdominal exam: PRESENT: other - Soft, nondistended, very mild lower abdominal tenderness. No peritoneal signs. Markedly improved exam from earlier today Extremities exam: PRESENT: other - No swelling Results Laboratory Results: 07/08/17 05:10 07/08/17 05:10 07/08/17 07/08/17 05:10 05:10 WBC 9.1 RBC 4.41 Hgb 14.0 Hct 40.7 MCV 92 MCH 31.8 MCHC 34.5 RDW 13.6 Plt Count 202 Seg Neutrophils % 64.8 Lymphocytes % 26.8 Monocytes % 6.6 Eosinophils % 1.4 Basophils % 0.4 Absolute Neutrophils 5.9 Absolute Lymphocytes 2.4 Absolute Monocytes 0.6 Absolute Eosinophils 0.1 Absolute Basophils 0.0 Sodium 141.3 Potassium 3.8 Chloride 107 Carbon Dioxide 27 Anion Gap 7 BUN 10 Creatinine 1.07 Est GFR ( Amer) > 60 Est GFR (Non-Af Amer) > 60 Glucose 90 Calcium 9.0 Impressions: Abdomen/Pelvis CT 07/08/17 08:59 IMPRESSION: Persistent free fluid in the pelvis without identified origin. Diverticulosis without diverticulitis. Increasing bibasilar opacities in the lungs. Assessment & Plan - Diagnosis (1) Acute abdominal pain Is this a current diagnosis for this admission?: Yes Plan: Much improved exam from earlier today. CT scan with oral contrast demonstrated diverticulosis but no radiographically evident diverticulitis. Free pelvic fluid is still present. No other abnormalities. Patient is clearly improved with conservative measures. Continue antibiotics and bowel rest for today. Will start a diet tomorrow if he continues to improve and likely discharge patient home in the next couple of days if he continues his progress.
[2017-07-09] MEDS: NORMAL SALINE 1000 ML 1,000 ML IV SCH ×2 (05:26→07:18)
[2017-07-09] MEDS: METRONIDAZOLE 500 MG TABLET PO SCH ×4 (05:26→23:53)
[2017-07-09] MEDS: PIPERACILLIN SODIUM/TAZOBACTAM 4.5 GM in NORMAL SALINE 100 ML IV SCH ×4 (05:26→23:53)
[2017-07-09] MEDS: HEPARIN SOD (PORCINE) 5,000 UNIT/ML 1 ML SYRINGE SUBCUT SCH ×3 (05:27→21:32)
[2017-07-09 07:19] LABS: ABSOLUTE EOSINOPHILS # (AUTO) 0.1 10^3/uL (0.0-0.6); ABSOLUTE LYMPHOCYTES (AUTO) 1.4 10^3/uL (0.5-4.7); ABSOLUTE MONOCYTES (AUTO) 0.3 10^3/uL (0.1-1.4); ABSOLUTE NEUT (AUTO) 4.7 10^3/uL (1.7-8.2); BASOPHILS % (AUTO) 0.7 % (0-2); EOSINOPHILS % (AUTO) 1.2 % (0-6); HEMATOCRIT 39.9 % (37.9-51.0); HEMOGLOBIN 13.6 g/dL (13.5-17.0); LYMPHOCYTES % (AUTO) 21.1 % (13-45); MEAN CORPUSCULAR HEMOGLOBIN 31.3 pg (27.0-33.4); MEAN CORPUSCULAR HGB CONC 34.1 g/dL (32.0-36.0); MEAN CORPUSCULAR VOLUME 92 fl (80-97); MONOCYTES % (AUTO) 4.5 % (3-13); PLATELET COUNT 193 10^3/uL (150-450); RED BLOOD COUNT 4.35 10^6/uL (4.35-5.55); RED CELL DISTRIBUTION WIDTH 13.9 % (11.5-14.0); SEGMENTED NEUTROPHILS % (AUTO) 72.5 % (42-78); TOTAL CELLS COUNTED % (AUTO) 100 %; WHITE BLOOD COUNT 6.5 10^3/uL (4.0-10.5)
[2017-07-09 07:42] LABS: ANION GAP 10 (5-19); BLOOD UREA NITROGEN 9 mg/dL (7-20); CALCIUM 8.9 mg/dL (8.4-10.2); CARBON DIOXIDE 25 mmol/L (22-30); CHLORIDE 106 mmol/L (98-107); GLUCOSE 70 mg/dL (75-110); POTASSIUM 3.6 mmol/L (3.6-5.0); SODIUM 141.4 mmol/L (137-145)
[2017-07-09] MEDS: HYDROCHLOROTHIAZIDE 12.5 MG CAPSULE PO SCH (08:30)
[2017-07-09] MEDS: AMLODIPINE BESYLATE 5 MG TABLET PO SCH (08:31)
--- NOTE | 2017-07-09 08:56 | PDOC PROGRESS REPORT ---
Subjective Progress Note for:: 07/09/17 Subjective:: C/O diarrhea. Much less abdominal pains Hungry and c/o "hunger" abdominal pains Reason For Visit: DIVERTICULITIS ABD PAIN Physical Exam Vital Signs: Temp Pulse Resp BP Pulse Ox 98.5 F 76 16 155/95 H 100 07/09/17 05:30 07/09/17 05:30 07/09/17 05:30 07/09/17 05:30 07/09/17 05:30 Intake & Output 07/08/17 07/09/17 07/10/17 06:59 06:59 06:59 Intake Total 2400 Output Total 350 Balance 2049 Weight 86.13 kg Exam: Abd is soft and minimal tenderness LLQ Results Laboratory Results: 07/09/17 07:05 07/09/17 07:05 07/09/17 07/09/17 07:05 07:05 WBC 6.5 RBC 4.35 Hgb 13.6 Hct 39.9 MCV 92 MCH 31.3 MCHC 34.1 RDW 13.9 Plt Count 193 Seg Neutrophils % 72.5 Lymphocytes % 21.1 Monocytes % 4.5 Eosinophils % 1.2 Basophils % 0.7 Absolute Neutrophils 4.7 Absolute Lymphocytes 1.4 Absolute Monocytes 0.3 Absolute Eosinophils 0.1 Absolute Basophils 0.0 Sodium 141.4 Potassium 3.6 Chloride 106 Carbon Dioxide 25 Anion Gap 10 BUN 9 Creatinine 1.18 Est GFR ( Amer) > 60 Est GFR (Non-Af Amer) > 60 Glucose 70 L Calcium 8.9 Impressions: Abdomen/Pelvis CT 07/08/17 08:59 IMPRESSION: Persistent free fluid in the pelvis without identified origin. Diverticulosis without diverticulitis. Increasing bibasilar opacities in the lungs. Assessment & Plan - Diagnosis (1) Diverticulitis Is this a current diagnosis for this admission?: Yes - Time Time Spent with patient: 15-24 minutes - Inpatient Certification Medical Necessity: Need Close Monitoring Due to Risk of Patient Decompensation, Need For IV Fluids, Need for IV Antibiotics - Plan Summary Plan Summary: Check stools for C Dif Start clears and progress as tolerated to soft diet
[2017-07-09] MEDS: LISINOPRIL 10 MG TABLET PO SCH (10:25)
[2017-07-09] MEDS: HYDRALAZINE HCL INJ/PF 20 MG/1 ML SDV IV PRN (11:57)
--- NOTE | 2017-07-09 12:22 | PDOC PROGRESS REPORT ---
Subjective Progress Note for:: 07/09/17 Subjective:: Denies any abdominal pain. Reason For Visit: DIVERTICULITIS ABD PAIN Physical Exam Vital Signs: Temp Pulse Resp BP Pulse Ox 98.5 F 76 16 155/95 H 100 07/09/17 05:30 07/09/17 05:30 07/09/17 05:30 07/09/17 05:30 07/09/17 05:30 Intake & Output 07/08/17 07/09/17 07/10/17 06:59 06:59 06:59 Intake Total 2400 Output Total 350 Balance 2050 Weight 86.13 kg General appearance: PRESENT: no acute distress Eye exam: PRESENT: conjunctiva pink. ABSENT: scleral icterus Mouth exam: PRESENT: moist, tongue midline Neck exam: ABSENT: JVD Respiratory exam: PRESENT: clear to auscultation tolu. ABSENT: rales, rhonchi, wheezes Cardiovascular exam: PRESENT: RRR. ABSENT: diastolic murmur, rubs, systolic murmur GI/Abdominal exam: PRESENT: normal bowel sounds, soft. ABSENT: distended, guarding, mass, organolmegaly, rebound, tenderness Extremities exam: ABSENT: calf tenderness, clubbing, pedal edema Neurological exam: PRESENT: alert, awake, oriented to person, oriented to place , oriented to time, oriented to situation, CN II-XII grossly intact. ABSENT: motor sensory deficit Psychiatric exam: PRESENT: appropriate affect Skin exam: PRESENT: dry, intact, warm. ABSENT: cyanosis, rash Results Laboratory Results: 07/09/17 07:05 07/09/17 07:05 07/09/17 07/09/17 07:05 07:05 WBC 6.5 RBC 4.35 Hgb 13.6 Hct 39.9 MCV 92 MCH 31.3 MCHC 34.1 RDW 13.9 Plt Count 193 Seg Neutrophils % 72.5 Lymphocytes % 21.1 Monocytes % 4.5 Eosinophils % 1.2 Basophils % 0.7 Absolute Neutrophils 4.7 Absolute Lymphocytes 1.4 Absolute Monocytes 0.3 Absolute Eosinophils 0.1 Absolute Basophils 0.0 Sodium 141.4 Potassium 3.6 Chloride 106 Carbon Dioxide 25 Anion Gap 10 BUN 9 Creatinine 1.18 Est GFR ( Amer) > 60 Est GFR (Non-Af Amer) > 60 Glucose 70 L Calcium 8.9 Impressions: Abdomen/Pelvis CT 07/08/17 08:59 IMPRESSION: Persistent free fluid in the pelvis without identified origin. Diverticulosis without diverticulitis. Increasing bibasilar opacities in the lungs. Assessment & Plan - Diagnosis (1) Diverticulitis Is this a current diagnosis for this admission?: Yes Plan: The patient has free fluid in the abdomen. No obvious perforation. Clinically he is doing well with no abdominal pain. Will advance the diet. - Time Time Spent with patient: 15-24 minutes - Inpatient Certification Medical Necessity: Need Close Monitoring Due to Risk of Patient Decompensation, Need for IV Antibiotics
[2017-07-10] MEDS: METRONIDAZOLE 500 MG TABLET PO SCH (05:42)
[2017-07-10] MEDS: PIPERACILLIN SODIUM/TAZOBACTAM 4.5 GM in NORMAL SALINE 100 ML IV SCH (05:43)
[2017-07-10] MEDS: HEPARIN SOD (PORCINE) 5,000 UNIT/ML 1 ML SYRINGE SUBCUT SCH (05:45)
[2017-07-10 06:50] LABS: ABSOLUTE EOSINOPHILS # (AUTO) 0.1 10^3/uL (0.0-0.6); ABSOLUTE LYMPHOCYTES (AUTO) 1.8 10^3/uL (0.5-4.7); ABSOLUTE MONOCYTES (AUTO) 0.4 10^3/uL (0.1-1.4); ABSOLUTE NEUT (AUTO) 3.4 10^3/uL (1.7-8.2); BASOPHILS % (AUTO) 0.8 % (0-2); EOSINOPHILS % (AUTO) 2.3 % (0-6); HEMATOCRIT 39.5 % (37.9-51.0); HEMOGLOBIN 13.4 g/dL (13.5-17.0); LYMPHOCYTES % (AUTO) 31.3 % (13-45); MEAN CORPUSCULAR HEMOGLOBIN 31.1 pg (27.0-33.4); MEAN CORPUSCULAR HGB CONC 33.9 g/dL (32.0-36.0); MEAN CORPUSCULAR VOLUME 92 fl (80-97); MONOCYTES % (AUTO) 7.1 % (3-13); PLATELET COUNT 206 10^3/uL (150-450); RED CELL DISTRIBUTION WIDTH 13.4 % (11.5-14.0); SEGMENTED NEUTROPHILS % (AUTO) 58.5 % (42-78); TOTAL CELLS COUNTED % (AUTO) 100 %; WHITE BLOOD COUNT 5.9 10^3/uL (4.0-10.5)
[2017-07-10 06:57] LABS: ANION GAP 9 (5-19); BLOOD UREA NITROGEN 8 mg/dL (7-20); CARBON DIOXIDE 26 mmol/L (22-30); CHLORIDE 106 mmol/L (98-107); GLUCOSE 87 mg/dL (75-110); POTASSIUM 3.6 mmol/L (3.6-5.0); SODIUM 140.8 mmol/L (137-145)
[2017-07-10] MEDS: HYDRALAZINE HCL INJ/PF 20 MG/1 ML SDV IV PRN (07:45)
--- NOTE | 2017-07-10 08:25 | PDOC PROGRESS REPORT ---
Subjective Progress Note for:: 07/10/17 Subjective:: no more pains,hungry Reason For Visit: DIVERTICULITIS ABD PAIN Physical Exam Vital Signs: Temp Pulse Resp BP Pulse Ox 98.8 F 82 18 156/75 H 98 07/10/17 04:00 07/10/17 04:00 07/10/17 04:00 07/10/17 04:00 07/10/17 04:00 Intake & Output 07/09/17 07/10/17 07/11/17 06:59 06:59 06:59 Intake Total 2400 Output Total 350 Balance 2050 Weight 86.13 kg Exam: abd soft and nontender Results Laboratory Results: 07/10/17 06:05 07/10/17 06:05 07/10/17 07/10/17 06:05 06:05 WBC 5.9 RBC 4.30 L Hgb 13.4 L Hct 39.5 MCV 92 MCH 31.1 MCHC 33.9 RDW 13.4 Plt Count 206 Seg Neutrophils % 58.5 Lymphocytes % 31.3 Monocytes % 7.1 Eosinophils % 2.3 Basophils % 0.8 Absolute Neutrophils 3.4 Absolute Lymphocytes 1.8 Absolute Monocytes 0.4 Absolute Eosinophils 0.1 Absolute Basophils 0.0 Sodium 140.8 Potassium 3.6 Chloride 106 Carbon Dioxide 26 Anion Gap 9 BUN 8 Creatinine 1.12 Est GFR ( Amer) > 60 Est GFR (Non-Af Amer) > 60 Glucose 87 Calcium 9.0 Impressions: Abdomen/Pelvis CT 07/08/17 08:59 IMPRESSION: Persistent free fluid in the pelvis without identified origin. Diverticulosis without diverticulitis. Increasing bibasilar opacities in the lungs. Assessment & Plan - Diagnosis (1) Diverticulitis Is this a current diagnosis for this admission?: Yes - Time Time Spent with patient: 15-24 minutes - Plan Summary Plan Summary: OK to have reg diet and if tolerated may be discharged from surgical viewpoint on po antibiotics for 7-10 days. Can be followed up at the surgical clinic in 2 weeks
[2017-07-10] MEDS: HYDROCHLOROTHIAZIDE 12.5 MG CAPSULE PO SCH (10:03)
[2017-07-10] MEDS: LISINOPRIL 10 MG TABLET PO SCH (10:04)
[2017-07-10] MEDS: AMLODIPINE BESYLATE 5 MG TABLET PO SCH (10:04)
[2017-07-10 11:12] VITALS: BP 156/75
--- NOTE | 2017-07-10 11:30 | PDOC DISCHARGE SUMMARY ---
General - Admit/Disc Date/PCP Admission Date/Primary Care Provider: 07/07/17 22:21 Discharge Date: 07/10/17 - Discharge Diagnosis (1) Diverticulitis Is this a current diagnosis for this admission?: Yes - Additional Information Discharge Diet: Regular Discharge Activity: Activity As Tolerated Prescriptions: Amlodipine Besylate [Norvasc 5 mg Tablet] 5 mg PO DAILY #30 tablet Ciprofloxacin HCl [Cipro 500 mg Tablet] 500 mg PO BID #20 tablet Metronidazole [Flagyl 500 mg Tablet] 500 mg PO TID #30 tablet Home Medications: Lisinopril/Hydrochlorothiazide [Lisinopril-Hctz 10-12.5 mg Tab] 1 each PO DAILY 07/08/17 Amlodipine Besylate [Norvasc 5 mg Tablet] 5 mg PO DAILY #30 tablet 07/10/17 Ciprofloxacin HCl [Cipro 500 mg Tablet] 500 mg PO BID #20 tablet 07/10/17 Metronidazole [Flagyl 500 mg Tablet] 500 mg PO TID #30 tablet 07/10/17 History of Present Illness History of Present Illness: IVY VENEGAS JR is a 47 year old male with a history of hypertension who presents with abdominal pain for approximately 2 days prior to presenting. The patient had a CT scan that showed diverticulosis and free fluid in the pelvis. He is admitted for antibiotics. Hospital Course Hospital Course: 47-year-old male who was in the emergency room several days prior to presentation with possible pneumonia and given antibiotics for which he did not get filled. He presented to emergency room again with complaints of abdominal pain for 48 hours. He was found to have diverticulosis and free fluid in the abdomen. CT scan showed no evidence for perforation however there was concern given the free fluid that he may have had a small perforation. Patient was started empirically on antibiotics and had quick improvement. He did not have any evidence for an acute surgical abdomen and he was evaluated by surgery. The patient had improvement and his pain resolved and was felt he was stable for discharge on oral antibiotics. Is presumed that he had acute diverticulitis with a small perforation of the cause for the symptoms. He also has a history of hypertension which was stable during this hospitalization. Physical Exam Vital Signs: Temp Pulse Resp BP Pulse Ox 98.3 F 65 17 156/75 H 99 07/10/17 11:05 07/10/17 11:05 07/10/17 11:05 07/10/17 11:05 07/10/17 11:05 Intake & Output 07/09/17 07/10/17 07/11/17 06:59 06:59 06:59 Intake Total 2400 Output Total 350 Balance 2049 Weight 86.13 kg General appearance: PRESENT: no acute distress Eye exam: PRESENT: conjunctiva pink. ABSENT: scleral icterus Mouth exam: PRESENT: moist, tongue midline Neck exam: ABSENT: JVD Respiratory exam: PRESENT: clear to auscultation tolu. ABSENT: rales, rhonchi, wheezes Cardiovascular exam: PRESENT: RRR. ABSENT: diastolic murmur, rubs, systolic murmur GI/Abdominal exam: PRESENT: normal bowel sounds, soft. ABSENT: distended, guarding, mass, organolmegaly, rebound, tenderness Extremities exam: ABSENT: calf tenderness, clubbing, pedal edema Neurological exam: PRESENT: alert, awake, oriented to person, oriented to place , oriented to time, oriented to situation, CN II-XII grossly intact. ABSENT: motor sensory deficit Psychiatric exam: PRESENT: appropriate affect Skin exam: PRESENT: dry, intact, warm. ABSENT: cyanosis, rash Results Laboratory Results: 07/10/17 06:05 07/10/17 06:05 07/10/17 07/10/17 06:05 06:05 WBC 5.9 RBC 4.30 L Hgb 13.4 L Hct 39.5 MCV 92 MCH 31.1 MCHC 33.9 RDW 13.4 Plt Count 206 Seg Neutrophils % 58.5 Lymphocytes % 31.3 Monocytes % 7.1 Eosinophils % 2.3 Basophils % 0.8 Absolute Neutrophils 3.4 Absolute Lymphocytes 1.8 Absolute Monocytes 0.4 Absolute Eosinophils 0.1 Absolute Basophils 0.0 Sodium 140.8 Potassium 3.6 Chloride 106 Carbon Dioxide 26 Anion Gap 9 BUN 8 Creatinine 1.12 Est GFR ( Amer) > 60 Est GFR (Non-Af Amer) > 60 Glucose 87 Calcium 9.0 Impressions: Abdomen/Pelvis CT 07/08/17 08:59 IMPRESSION: Persistent free fluid in the pelvis without identified origin. Diverticulosis without diverticulitis. Increasing bibasilar opacities in the lungs. Qualifiers PATEINT BEING DISCHARGED WITH ANY OF THE FOLLOWING DIAGNOSIS?: No Plan Discharge Plan: Discharged home in stable condition. Follow-up with primary care in 2 weeks. Time Spent: Less than 30 Minutes
== END 2017-07-10 11:18 | disposition home or self-care (01) | DRG 392 ==
LOC: ER 17:37 → EH 22:21 → 2S 07-08 12:18
PROVIDERS: ADMIT Internal Medicine; ATTEND Internal Medicine
DX: K57.80 Diverticulitis of intestine, part unspecified, with perforation and abscess without bleeding (principal); I10 Essential (primary) hypertension; K59.00 Constipation, unspecified; F17.210 Nicotine dependence, cigarettes, uncomplicated; Z79.2 Long term (current) use of antibiotics; Z79.82 Long term (current) use of aspirin; Z79.52 Long term (current) use of systemic steroids; Z79.899 Other long term (current) drug therapy
CPT/HCPCS: 36415; 74176; 74177; 80048; 80053; 81001; 83690; 85025; 87040; 87493; 99285; J0360; J1644; J2270; J2405; J2543; J7030

== ENCOUNTER 2017-07-21 02:06 | Emergency (ER) | payer SELFPAY | END 2017-07-21 03:03 | disposition left against medical advice (07) | LOC: ER 02:06 | DX: Z53.21 Procedure and treatment not carried out due to patient leaving prior to being seen by health care provider (principal); R10.9 Unspecified abdominal pain ==

== ENCOUNTER 2017-07-28 16:31 | Emergency (ER) | payer SELFPAY ==
[2017-07-28] MEDS ORDERED: HYDROCODONE/ACETAMINOPHEN 5-325 MG TABLET PO ONE (17:20)
[2017-07-28] MEDS ORDERED: MORPHINE SULFATE 10 MG/ML INJ IV ONE (17:26)
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
[2017-07-28 18:26] LABS: APPEARANCE,URINE CLEAR; BILIRUBIN,URINE NEGATIVE (NEGATIVE); COLOR,URINE YELLOW; GLUCOSE, URINE NEGATIVE (NEGATIVE); KETONES,URINE NEGATIVE (NEGATIVE); LEUKOCYTE ESTERASE,URINE NEGATIVE (NEGATIVE); NITRITE,URINE NEGATIVE (NEGATIVE); PROTEIN,URINE NEGATIVE (NEGATIVE)
[2017-07-28 19:05] LABS: ABSOLUTE BASOPHILS # (AUTO) 0.1 10^3/uL (0.0-0.2); ABSOLUTE EOSINOPHILS # (AUTO) 0.3 10^3/uL (0.0-0.6); ABSOLUTE LYMPHOCYTES (AUTO) 2.3 10^3/uL (0.5-4.7); ABSOLUTE MONOCYTES (AUTO) 0.5 10^3/uL (0.1-1.4); ABSOLUTE NEUT (AUTO) 4.6 10^3/uL (1.7-8.2); BASOPHILS % (AUTO) 0.8 % (0-2); EOSINOPHILS % (AUTO) 3.5 % (0-6); HEMATOCRIT 45.2 % (37.9-51.0); HEMOGLOBIN 15.5 g/dL (13.5-17.0); LYMPHOCYTES % (AUTO) 29.7 % (13-45); MEAN CORPUSCULAR HEMOGLOBIN 31.9 pg (27.0-33.4); MEAN CORPUSCULAR HGB CONC 34.3 g/dL (32.0-36.0); MEAN CORPUSCULAR VOLUME 93 fl (80-97); MONOCYTES % (AUTO) 6.4 % (3-13); PLATELET COUNT 216 10^3/uL (150-450); RED BLOOD COUNT 4.87 10^6/uL (4.35-5.55); RED CELL DISTRIBUTION WIDTH 14.1 % (11.5-14.0); SEGMENTED NEUTROPHILS % (AUTO) 59.6 % (42-78); TOTAL CELLS COUNTED % (AUTO) 100 %; WHITE BLOOD COUNT 7.7 10^3/uL (4.0-10.5)
[2017-07-28 19:26] LABS: ALANINE AMINOTRANSFERASE 24 U/L (21-72); ALBUMIN 4.5 g/dL (3.5-5.0); ALKALINE PHOSPHATASE 32 U/L (38-126); ANION GAP 12 (5-19); ASPARTATE AMINO TRANSFERASE 30 U/L (17-59); BILIRUBIN,DIRECT 0.4 mg/dL (0.0-0.4); BILIRUBIN,TOTAL 0.5 mg/dL (0.2-1.3); BLOOD UREA NITROGEN 16 mg/dL (7-20); CALCIUM 9.4 mg/dL (8.4-10.2); CARBON DIOXIDE 31 mmol/L (22-30); CHLORIDE 100 mmol/L (98-107); GLUCOSE 80 mg/dL (75-110); LIPASE 265.2 U/L (23-300); POTASSIUM 3.9 mmol/L (3.6-5.0); SODIUM 142.8 mmol/L (137-145); TOTAL PROTEIN 7.5 g/dL (6.3-8.2)
--- NOTE | 2017-07-28 19:37 | RADIOLOGY REPORT (SQ) ---
EXAM DESCRIPTION: CT ABD/PELVIS WITH IV ONLY COMPLETED DATE/TIME: 07/28/2017 7:06 pm REASON FOR STUDY: persistent llq abd pain COMPARISON: 07/08/2017 TECHNIQUE: CT scan of the abdomen and pelvis performed using helical scanning technique with dynamic intravenous contrast injection. No oral contrast. Images reviewed with lung, soft tissue, and bone windows. Reconstructed coronal and sagittal MPR images reviewed. Delayed images for evaluation of the urinary system also acquired. All images stored on PACS. All CT scanners at this facility use dose modulation, iterative reconstruction, and/or weight based d osing when appropriate to reduce radiation dose to as low as reasonably achievable (ALARA). [facility]: Dose Right [facility]: CareDose [facility]: Dose Right [facility]: Teradose 4D [facility]: FAB BAG CONTRAST TYPE AND DOSE: contrast/concentration: Isovue 370.00 mg/ml; Total Contrast Delivered: 100.0 ml; Total Saline Delivered: 45.0 ml RENAL FUNCTION: Choose 1 RADIATION DOSE: CT Rad equipment meets quality standard of care and radiation dose reduction techniq ues were employed. CTDIvol: 7.3 - 10.6 mGy. DLP: 959 mGy-cm.. LIMITATIONS: None. FINDINGS: LOWER CHEST: Resolved small bilateral effusions. No nodules or infiltrates. Small right l ower lobe cyst. LIVER: Normal size. No masses. No dilated ducts. SPLEEN: Normal size. No focal lesions. PANCREAS: Stable appearance. No significant calcifications. No adjacent inflammation or peripancreati c fluid collections. Pancreatic duct mildly prominent, stable. GALLBLADDER: No identified stones by CT criteria. No inflammatory changes to suggest cholecystitis. ADRENAL GLANDS: No significant masses or asymmetry. RIGHT KIDNEY AND URETER: No solid masses. No significant calcifications. No hydronephrosis or hyd roureter. LEFT KIDNEY AND URETER: No solid masses. No significant calcifications. No hydronephrosis or hydr oureter. AORTA AND VESSELS: No aneurysm. No dissection. Renal arteries, SMA, celiac without stenosis. RETROPERITONEUM: No retroperitoneal adenopathy, hemorrhage or masses. BOWEL AND PERITONEAL CAVITY: Scattered pericolic inflammatory changes and trace free fluid. No signi ficant change compared with the prior study. No evidence for obstruction. Diverticulosis. APPENDIX: Normal. PELVIS: Persistent free fluid, though slightly diminished compared with the prior exam. Normal bladde r. ABDOMINAL WALL: No masses. No hernias. BONES: No acute findings. OTHER: No other significant finding. IMPRESSION: Persistent free fluid, though slightly diminished compared with the prior exam. Scattered pericolic inflammatory changes and trace free fluid. No significant change compared with t he prior study. Resolved small bilateral effusions. TECHNICAL DOCUMENTATION: JOB ID: [id number] Quality ID # [id number]: Final reports with documentation of one or more dose reduction techniques (e.g., Au tomated exposure control, adjustment of the mA and/or kV according to patient size, use of iterative reconstruction technique) 2010 [employer]- All Rights Reserved
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
[2017-07-28 23:27] VITALS: BP 135/96
== END 2017-07-28 23:28 | disposition home or self-care (01) ==
LOC: ER 16:31
DX: K57.92 Diverticulitis of intestine, part unspecified, without perforation or abscess without bleeding (principal); R10.9 Unspecified abdominal pain
CPT/HCPCS: 99284; 96374; 36415; 83690; 85025; 80053; 81001; 74177; J2270

== ENCOUNTER → 2017-08-11 | Outpatient (CLI) | payer OTHER ==
[2017-08-11 17:20] LABS: ABSOLUTE EOSINOPHILS # (AUTO) 0.1 10^3/uL (0.0-0.6); ABSOLUTE LYMPHOCYTES (AUTO) 2.2 10^3/uL (0.5-4.7); ABSOLUTE MONOCYTES (AUTO) 0.4 10^3/uL (0.1-1.4); ABSOLUTE NEUT (AUTO) 3.9 10^3/uL (1.7-8.2); BASOPHILS % (AUTO) 0.7 % (0-2); EOSINOPHILS % (AUTO) 1.6 % (0-6); HEMATOCRIT 42.2 % (37.9-51.0); HEMOGLOBIN 14.6 g/dL (13.5-17.0); LYMPHOCYTES % (AUTO) 33.3 % (13-45); MEAN CORPUSCULAR HEMOGLOBIN 31.6 pg (27.0-33.4); MEAN CORPUSCULAR HGB CONC 34.6 g/dL (32.0-36.0); MEAN CORPUSCULAR VOLUME 91 fl (80-97); MONOCYTES % (AUTO) 5.9 % (3-13); PLATELET COUNT 225 10^3/uL (150-450); RED BLOOD COUNT 4.61 10^6/uL (4.35-5.55); RED CELL DISTRIBUTION WIDTH 13.5 % (11.5-14.0); SEGMENTED NEUTROPHILS % (AUTO) 58.5 % (42-78); TOTAL CELLS COUNTED % (AUTO) 100 %; WHITE BLOOD COUNT 6.7 10^3/uL (4.0-10.5)
[2017-08-11 18:00] LABS: ERYTHROCYTE SEDIMENTATION RATE 22 mm/hr (0-15)
== END ==
LOC: CCC 16:18
DX: K57.92 Diverticulitis of intestine, part unspecified, without perforation or abscess without bleeding (principal)
CPT/HCPCS: 36415; 85025; 85652; 86140

== ENCOUNTER 2017-08-16 11:04 | Emergency (ER) | payer SELFPAY ==
[2017-08-16] MEDS ORDERED: HYDROCODONE/ACETAMINOPHEN 5-325 MG TABLET PO ONE ×2 (12:12→16:49)
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
--- NOTE | 2017-08-16 13:02 | RADIOLOGY REPORT (SQ) ---
EXAM DESCRIPTION: ACUTE ABDOMEN SERIES COMPLETED DATE/TIME: 08/16/2017 12:39 pm REASON FOR STUDY: abd pain COMPARISON: None. NUMBER OF VIEWS: Three views. TECHNIQUE: Frontal chest, supine abdomen and upright/decubitus abdomen radiographic images acquired. LIMITATIONS: None. FINDINGS: CHEST: Lungs clear of infiltrates. FREE AIR: None. No abnormal gas collections. BOWEL GAS PATTERN: Nonobstructive pattern. No dilated loops or air fluid levels. CALCIFICATIONS: No suspicious calcifications. HARDWARE: None in the abdomen. SOFT TISSUES: No gross mass or suggestion of organomegaly. BONES: No acute fracture. No worrisome bone lesions. OTHER: No other significant finding. IMPRESSION: NO RADIOGRAPHIC EVIDENCE FOR ACUTE ABDOMINAL DISEASE. TECHNICAL DOCUMENTATION: JOB ID: [id number] [employer]- All Rights Reserved
[2017-08-16 13:23] LABS: ABSOLUTE BASOPHILS # (AUTO) 0.1 10^3/uL (0.0-0.2); ABSOLUTE EOSINOPHILS # (AUTO) 0.1 10^3/uL (0.0-0.6); ABSOLUTE MONOCYTES (AUTO) 0.3 10^3/uL (0.1-1.4); ABSOLUTE NEUT (AUTO) 3.8 10^3/uL (1.7-8.2); BASOPHILS % (AUTO) 0.9 % (0-2); EOSINOPHILS % (AUTO) 2.4 % (0-6); HEMATOCRIT 45.2 % (37.9-51.0); HEMOGLOBIN 15.2 g/dL (13.5-17.0); LYMPHOCYTES % (AUTO) 32.2 % (13-45); MEAN CORPUSCULAR HEMOGLOBIN 31.4 pg (27.0-33.4); MEAN CORPUSCULAR HGB CONC 33.5 g/dL (32.0-36.0); MEAN CORPUSCULAR VOLUME 94 fl (80-97); MONOCYTES % (AUTO) 5.2 % (3-13); PLATELET COUNT 239 10^3/uL (150-450); RED BLOOD COUNT 4.83 10^6/uL (4.35-5.55); RED CELL DISTRIBUTION WIDTH 13.9 % (11.5-14.0); SEGMENTED NEUTROPHILS % (AUTO) 59.3 % (42-78); TOTAL CELLS COUNTED % (AUTO) 100 %; WHITE BLOOD COUNT 6.4 10^3/uL (4.0-10.5)
[2017-08-16 13:40] LABS: ALANINE AMINOTRANSFERASE 18 U/L (21-72); ALBUMIN 4.5 g/dL (3.5-5.0); ALKALINE PHOSPHATASE 35 U/L (38-126); ANION GAP 10 (5-19); ASPARTATE AMINO TRANSFERASE 28 U/L (17-59); BILIRUBIN,DIRECT 0.5 mg/dL (0.0-0.4); BILIRUBIN,TOTAL 0.6 mg/dL (0.2-1.3); BLOOD UREA NITROGEN 14 mg/dL (7-20); CARBON DIOXIDE 32 mmol/L (22-30); CHLORIDE 99 mmol/L (98-107); GLUCOSE 151 mg/dL (75-110); LIPASE 369.2 U/L (23-300); POTASSIUM 4.2 mmol/L (3.6-5.0); SODIUM 140.6 mmol/L (137-145); TOTAL PROTEIN 7.5 g/dL (6.3-8.2)
[2017-08-16 13:59] LABS: APPEARANCE,URINE SLIGHTLY-CLOUDY; BILIRUBIN,URINE NEGATIVE (NEGATIVE); COLOR,URINE YELLOW; GLUCOSE, URINE NEGATIVE (NEGATIVE); KETONES,URINE NEGATIVE (NEGATIVE); LEUKOCYTE ESTERASE,URINE NEGATIVE (NEGATIVE); NITRITE,URINE NEGATIVE (NEGATIVE); PROTEIN,URINE NEGATIVE (NEGATIVE); URINE SPECIFIC GRAVITY 1.023; UROBILINOGEN,URINE NEGATIVE mg/dL (<2.0)
[2017-08-16 15:07] LABS: CHLAM PCR NOT DETECTED (NOT DETECT); GON PCR NOT DETECTED (NOT DETECT)
[2017-08-16] MEDS ORDERED: NORMAL SALINE 1000 ML 1,000 ML IV ONE (15:29)
--- NOTE | 2017-08-16 15:47 | RADIOLOGY REPORT (SQ) ---
EXAM DESCRIPTION: U/S SCROTUM W/DOPPLER COMPLETED DATE/TIME: 08/16/2017 3:38 pm REASON FOR STUDY: scrotal pain COMPARISON: None. TECHNIQUE: Static and realtime tierney scale imaging of the scrotum and testes. Selected color Doppler and spectral images recorded to document blood flow. LIMITATIONS: None. FINDINGS: RIGHT: TESTICLE: Normal size. Normal echotexture. Normal blood flow. No mass. Tiny 3 mm cyst is noted. EPIDIDYMIS: Normal. HYDROCELE OR VARICOCELE: No. HERNIA OR EXTRA-TESTICULAR MASS: No. OTHER: No other significant finding. LEFT: TESTICLE: Normal size. Normal echotexture. Normal blood flow. No mass. A tiny 2 mm cyst is noted. EPIDIDYMIS: Normal. HYDROCELE OR VARICOCELE: No. HERNIA OR EXTRA-TESTICULAR MASS: No. OTHER: No other significant finding. IMPRESSION: Nothing acute. TECHNICAL DOCUMENTATION: JOB ID: [id number] [employer]- All Rights Reserved
--- NOTE | 2017-08-16 18:25 | RADIOLOGY REPORT (SQ) ---
EXAM DESCRIPTION: CT ABD/PELVIS WITH IV ONLY COMPLETED DATE/TIME: 08/16/2017 6:12 pm REASON FOR STUDY: abd pain COMPARISON: 07/28/2017 in 07/07/2017 TECHNIQUE: CT scan of the abdomen and pelvis performed using helical scanning technique with dynamic intravenous contrast injection. No oral contrast. Images reviewed with lung, soft tissue, and bone windows. Reconstructed coronal and sagittal MPR images reviewed. Delayed images for evaluation of the urinary system also acquired. All images stored on PACS. All CT scanners at this facility use dose modulation, iterative reconstruction, and/or weight based d osing when appropriate to reduce radiation dose to as low as reasonably achievable (ALARA). [facility]: Dose Right [facility]: CareDose [facility]: Dose Right [facility]: Teradose 4D [facility]: StyleChat by [employer] Mobile CONTRAST TYPE AND DOSE: contrast/concentration: Isovue 370.00 mg/ml; Total Contrast Delivered: 100.0 ml; Total Saline Delivered: 43.0 ml RENAL FUNCTION: Creatinine measures 1.43 RADIATION DOSE: CT Rad equipment meets quality standard of care and radiation dose reduction techniq ues were employed. CTDIvol: NaN - NaN mGy. DLP: 0 mGy-cm.. LIMITATIONS: None. FINDINGS: LOWER CHEST: Stable smaller cyst right lower lobe. Lungs and pleural spaces otherwise jonnie ar as visualized. LIVER: Normal size. No masses. No dilated ducts. SPLEEN: Normal size. No focal lesions. PANCREAS: No masses. No significant calcifications. No adjacent inflammation or peripancreatic fluid collections. Pancreatic duct not dilated. GALLBLADDER: No identified stones by CT criteria. No inflammatory changes to suggest cholecystitis. ADRENAL GLANDS: No significant masses or asymmetry. RIGHT KIDNEY AND URETER: No solid masses. No significant calcifications. No hydronephrosis or hyd roureter. LEFT KIDNEY AND URETER: No solid masses. No significant calcifications. No hydronephrosis or hydr oureter. AORTA AND VESSELS: No aneurysm. No dissection. Renal arteries, SMA, celiac without stenosis. RETROPERITONEUM: No retroperitoneal adenopathy, hemorrhage or masses. BOWEL AND PERITONEAL CAVITY: There are areas of mild mucosal thickening with mild adjacent mesenteric stranding involving proximal and mid small bowel loops most notable on series 601, image 31. Large b owel loops are normal. No obstruction, pneumatosis, or abscess. APPENDIX: Normal. PELVIS: No mass. Trace free fluid. Normal bladder. ABDOMINAL WALL: No masses. No hernias. BONES: Stable degenerative change without fracture or suspicious osseous lesion. OTHER: No other significant finding. IMPRESSION: SCATTERED AREAS OF MILD SMALL BOWEL MUCOSAL THICKENING WITH ADJACENT STRANDING IN MILD F REE FLUID WITHIN THE PELVIS SUGGESTIVE OF INFECTIOUS OR INFLAMMATORY BOWEL DISEASE. 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 NO OBSTRUCTION, ABSCESS, OR PNEUMATOSIS. ADDITIONAL CHRONIC CHANGES ABOVE. TECHNICAL DOCUMENTATION: JOB ID: [id number] Quality ID # [id number]: Final reports with documentation of one or more dose reduction techniques (e.g., Au tomated exposure control, adjustment of the mA and/or kV according to patient size, use of iterative reconstruction technique) 2010 [employer]- All Rights Reserved
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
[2017-08-16 19:33] VITALS: BP 138/82
== END 2017-08-16 19:45 | disposition home or self-care (01) ==
LOC: ER 11:04
DX: N50.82 Scrotal pain (principal); R10.30 Lower abdominal pain, unspecified; F17.200 Nicotine dependence, unspecified, uncomplicated; I10 Essential (primary) hypertension
CPT/HCPCS: 99284; 96360; 96361; 36415; 87086; 83690; 85025; 80053; 81001; 87491; 87591; 74022; 76870; 93976; 74177; J7030

== ENCOUNTER → 2017-09-01 | Outpatient (CLI) | payer OTHER ==
[2017-09-01 16:46] LABS: APPEARANCE,URINE CLEAR; BILIRUBIN,URINE NEGATIVE (NEGATIVE); COLOR,URINE YELLOW; GLUCOSE, URINE NEGATIVE (NEGATIVE); KETONES,URINE NEGATIVE (NEGATIVE); LEUKOCYTE ESTERASE,URINE NEGATIVE (NEGATIVE); NITRITE,URINE NEGATIVE (NEGATIVE); PROTEIN,URINE NEGATIVE (NEGATIVE); URINE SPECIFIC GRAVITY 1.011; UROBILINOGEN,URINE NEGATIVE mg/dL (<2.0)
[2017-09-01 16:47] LABS: ABSOLUTE EOSINOPHILS # (AUTO) 0.1 10^3/uL (0.0-0.6); ABSOLUTE LYMPHOCYTES (AUTO) 2.2 10^3/uL (0.5-4.7); ABSOLUTE MONOCYTES (AUTO) 0.4 10^3/uL (0.1-1.4); ABSOLUTE NEUT (AUTO) 3.3 10^3/uL (1.7-8.2); BASOPHILS % (AUTO) 0.7 % (0-2); EOSINOPHILS % (AUTO) 1.9 % (0-6); HEMOGLOBIN 14.8 g/dL (13.5-17.0); LYMPHOCYTES % (AUTO) 36.6 % (13-45); MEAN CORPUSCULAR HEMOGLOBIN 31.6 pg (27.0-33.4); MEAN CORPUSCULAR HGB CONC 34.4 g/dL (32.0-36.0); MEAN CORPUSCULAR VOLUME 92 fl (80-97); MONOCYTES % (AUTO) 6.4 % (3-13); PLATELET COUNT 212 10^3/uL (150-450); RED BLOOD COUNT 4.67 10^6/uL (4.35-5.55); RED CELL DISTRIBUTION WIDTH 13.8 % (11.5-14.0); SEGMENTED NEUTROPHILS % (AUTO) 54.4 % (42-78); TOTAL CELLS COUNTED % (AUTO) 100 %
[2017-09-01 17:06] LABS: ANION GAP 13 (5-19); BLOOD UREA NITROGEN 12 mg/dL (7-20); CALCIUM 9.8 mg/dL (8.4-10.2); CARBON DIOXIDE 32 mmol/L (22-30); CHLORIDE 97 mmol/L (98-107); CHOLESTEROL 169.47 mg/dL (0-200); GLUCOSE 84 mg/dL (75-110); SODIUM 141.5 mmol/L (137-145); TRIGLYCERIDES 129 mg/dL (<150)
[2017-09-01 17:17] LABS: DIRECT LDL 84 mg/dL (<100)
== END ==
LOC: CCC 15:58
DX: N41.9 Inflammatory disease of prostate, unspecified (principal); I10 Essential (primary) hypertension
CPT/HCPCS: 36415; 80048; 80061; 81001; 83036; 84153; 85025

== ENCOUNTER 2017-09-05 08:34 | Emergency (ER) | payer BC, OTHER ==
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
[2017-09-05 10:07] LABS: ABSOLUTE EOSINOPHILS # (AUTO) 0.1 10^3/uL (0.0-0.6); ABSOLUTE LYMPHOCYTES (AUTO) 1.4 10^3/uL (0.5-4.7); ABSOLUTE MONOCYTES (AUTO) 0.4 10^3/uL (0.1-1.4); ABSOLUTE NEUT (AUTO) 3.8 10^3/uL (1.7-8.2); BASOPHILS % (AUTO) 0.7 % (0-2); EOSINOPHILS % (AUTO) 1.2 % (0-6); HEMATOCRIT 43.5 % (37.9-51.0); HEMOGLOBIN 14.8 g/dL (13.5-17.0); LYMPHOCYTES % (AUTO) 24.7 % (13-45); MEAN CORPUSCULAR HEMOGLOBIN 31.3 pg (27.0-33.4); MEAN CORPUSCULAR VOLUME 92 fl (80-97); MONOCYTES % (AUTO) 6.5 % (3-13); PLATELET COUNT 177 10^3/uL (150-450); RED BLOOD COUNT 4.73 10^6/uL (4.35-5.55); RED CELL DISTRIBUTION WIDTH 14.1 % (11.5-14.0); SEGMENTED NEUTROPHILS % (AUTO) 66.9 % (42-78); TOTAL CELLS COUNTED % (AUTO) 100 %; WHITE BLOOD COUNT 5.7 10^3/uL (4.0-10.5)
[2017-09-05 10:25] LABS: APPEARANCE,URINE SLIGHTLY-CLOUDY; BILIRUBIN,URINE SMALL (NEGATIVE); COLOR,URINE AMBER; GLUCOSE, URINE NEGATIVE (NEGATIVE); KETONES,URINE 20 mg/dL (NEGATIVE); LEUKOCYTE ESTERASE,URINE NEGATIVE (NEGATIVE); NITRITE,URINE NEGATIVE (NEGATIVE); PROTEIN,URINE 100 mg/dL (NEGATIVE); URINE SPECIFIC GRAVITY 1.033
[2017-09-05 10:26] LABS: ALANINE AMINOTRANSFERASE 32 U/L (21-72); ALBUMIN 4.2 g/dL (3.5-5.0); ALKALINE PHOSPHATASE 28 U/L (38-126); ANION GAP 12 (5-19); ASPARTATE AMINO TRANSFERASE 30 U/L (17-59); BILIRUBIN,DIRECT 0.1 mg/dL (0.0-0.4); BILIRUBIN,TOTAL 0.9 mg/dL (0.2-1.3); BLOOD UREA NITROGEN 12 mg/dL (7-20); CALCIUM 9.6 mg/dL (8.4-10.2); CARBON DIOXIDE 28 mmol/L (22-30); CHLORIDE 102 mmol/L (98-107); GLUCOSE 84 mg/dL (75-110); POTASSIUM 3.9 mmol/L (3.6-5.0); SODIUM 141.8 mmol/L (137-145); TOTAL PROTEIN 6.6 g/dL (6.3-8.2)
[2017-09-05 10:27] LABS: ACETAMINOPHEN < 10 ug/mL (10-30); ALCOHOL < 10 mg/dL (NONE DETECTED); SALICYLATE < 1.0 mg/dL (2.0-20.0)
[2017-09-05 10:40] LABS: URINE AMPHETAMINES SCREEN NEGATIVE; URINE BARBITURATES SCREEN NEGATIVE; URINE BENZODIAZEPINES SCREEN NEGATIVE; URINE COCAINE SCREEN UNCONFIRMED POSITIVE; URINE MARIJUANA (THC) SCREEN UNCONFIRMED POSITIVE; URINE METHADONE SCREEN NEGATIVE; URINE PHENCYCLIDINE SCREEN NEGATIVE
[2017-09-05 12:04] LABS: CREATINE KINASE MB 1.57 ng/mL (<4.55)
[2017-09-05 12:05] LABS: TROPONIN I < 0.012 ng/mL
[2017-09-05] MEDS ORDERED: HALOPERIDOL LACTATE INJ 5 MG/1 ML VIAL IM ONE (13:32)
--- NOTE | 2017-09-05 15:40 | EKG REPORT ---
SEVERITY:- ABNORMAL ECG - SINUS RHYTHM CONSIDER ANTEROSEPTAL INFARCT BORDERLINE T ABNORMALITIES, LATERAL LEADS : Confirmed by: Irineo Shepard MD 05-Sep-2017 15:39:28
--- NOTE | 2017-09-05 15:56 | PSYCHOLOGICAL NOTE ---
Psych Note - Psych Note Psych Note: Reason for consult: Suicidal ideation Contact Permissions: Patient's Rocio Erickson Impression/Plan: Recommendation to continue involuntary commitment due to patient meeting [facility] , patient is responding to internal stimuli, displaying erratic behavior, and harm to self.Recommendation to seek inpatient psychiatric facility placement. Patient is a 47 year old male. Patient reports he has a history of depression. Patient reports he is feeling low. Patient reports that he is "hearing voices", patient reports that the light hurts his eyes, he is not sleepy, but just wants to keep his eyes closed. Clinician observed patient's mood is labile, patient appears intoxicated as evidenced by . Patient responses are short, clinician observed patient is irritable. Patient requested clinician put the television on so he could watch TV. Collateral Information: Patient's reports prior to patient getting with her 10-11 years ago he mentioned he had a psychiatric stay. Patient's reports patient has a history of depression. Patient's reports that she has not seen him in a couple of days. Patient's reports she will come to hospital if needed and be a part of discharge plan. Medication Recommendations: Medication recommendations made by [facility] contracted psychiatric provider Dr. Migdalia MD Includes: Haldol 5 mg IM once Diagnosis: Stimulant use Disorder Cocaine, without perceptual disturbances with use disorder severe 292.89 (F14.229) Impression/ Plan: Patient is psychiatrically clear for discharge. Recommendation for patient to follow up with outpatient provider.Patient's Rocio Erickson agreed to be a part of patient's discharge care plan to include taking patient to outpatient appointments, ensuring he takes any medications prescribed to him at outpatient.
--- NOTE | 2017-09-05 18:41 | PSYCHOLOGICAL NOTE ---
Psych Note - Psych Note Psych Note: Patient was evaluated earlier in the day by RHONDA Mitchell and recommended for discharge, however, the ED Provider was not in agreement with the discharge. A conversation between ED Provider and I occurred and it was agreed I would meet with the Patient via telemedicine for reassessment. Met with Patient via telemedicine. He stated he was tired of being a failure. Indicated he continues to use drugs and alcohol and make the wrong choices. He reported he did not return home evening secondary to his drug use and when he returned on Wednesday, his had placed his belongings on the front porch. He stated he came to the ED to get help, not because he wanted to . He reported he had not spoken to his since . When advised his committed to being a part of his discharge plan, Patient appeared more interested and engaged. Patient indicated he was interested in substance abuse and mental health treatment and understood it would be necessary on an outpatient basis, as substance abuse treatment would need to come first given the multiple drugs he is using. He agreed to allow mobile crisis ([facility]) to meet him at his home to conduct an assessment and link or coordinate his substance abuse treatment and assist with arranging mental health treatment with their provider. He acknowledged suicide was not a "real" option for him, and that he was just "tired of failing." Patient was alert and oriented to person, place, time, and circumstance. Mood was dysthymic and affect was mood congruent. He denied suicidal / homicidal ideation, intent or plan. He denied auditory / visual hallucinations and no delusions were voiced. Thought processes were linear, rational, and organized he did not appear to be responding to be internal stimuli. Conversational speech was within normal limits for rate, tone, prosody. Intellectual abilities were estimated within the average range. Attention and concentration was within normal limits. Insight, judgment, and impulse control was considered poor historically. No Medication recommendations. Diagnoses: 1. Alcohol Use Disorder, Severe, 2. Alcohol Induced Depression 3. Cocaine Use Disorder, Moderate 4. Marijuana Use Disorder, Moderate Impression / Plan: Patient is psychiatrically clear for discharge. He denied suicidal / homicidal ideation, intent or plan. He reported ongoing use of alcohol, cocaine, and marijuana and it impacting his life negatively. He denied wanting to by suicide, rather wanting help and someplace to rest secondary to ongoing conflict with his and substance abuse. Patient agreed to after care plan of [facility] mobile crisis involvement upon discharge, where [facility] agrees to meet him at his home to complete an assessment and assist him with seeking voluntary inpatient substance abuse treatment and with linking him to mental health outpatient services. Patient's agreed to participate in discharge plan,however, is working a double shift through the day and is unable to transport Patient home this evening. [facility] agreed to meet Patient at his home upon discharge if he is able to obtain transportation. A cab was secured for his transport to his home. Spoke with ED Provider who is in agreement with recommendation and disposition.
[2017-09-06 09:15] VITALS: BP 151/91
== END 2017-09-06 09:18 | disposition home or self-care (01) ==
LOC: ER 08:34
DX: R45.851 Suicidal ideations (principal); R41.82 Altered mental status, unspecified; F17.200 Nicotine dependence, unspecified, uncomplicated; F14.229 Cocaine dependence with intoxication, unspecified; I10 Essential (primary) hypertension
CPT/HCPCS: 93005; 99285; 96372; 36415; 82553; 80307 ×4; 82550; 85025; 80053; 81001; 84484; 93010; J1630

== ENCOUNTER 2017-09-12 09:40 | Emergency (ER) | payer OTHER ==
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
[2017-09-12 11:24] LABS: ABSOLUTE EOSINOPHILS # (AUTO) 0.1 10^3/uL (0.0-0.6); ABSOLUTE MONOCYTES (AUTO) 0.6 10^3/uL (0.1-1.4); ABSOLUTE NEUT (AUTO) 4.9 10^3/uL (1.7-8.2); BASOPHILS % (AUTO) 0.6 % (0-2); EOSINOPHILS % (AUTO) 1.9 % (0-6); HEMATOCRIT 46.6 % (37.9-51.0); HEMOGLOBIN 15.8 g/dL (13.5-17.0); LYMPHOCYTES % (AUTO) 25.6 % (13-45); MEAN CORPUSCULAR HEMOGLOBIN 31.7 pg (27.0-33.4); MEAN CORPUSCULAR HGB CONC 33.8 g/dL (32.0-36.0); MEAN CORPUSCULAR VOLUME 94 fl (80-97); MONOCYTES % (AUTO) 7.3 % (3-13); PLATELET COUNT 224 10^3/uL (150-450); RED BLOOD COUNT 4.98 10^6/uL (4.35-5.55); RED CELL DISTRIBUTION WIDTH 14.9 % (11.5-14.0); SEGMENTED NEUTROPHILS % (AUTO) 64.6 % (42-78); TOTAL CELLS COUNTED % (AUTO) 100 %; WHITE BLOOD COUNT 7.6 10^3/uL (4.0-10.5)
[2017-09-12 11:36] LABS: APPEARANCE,URINE CLEAR; BILIRUBIN,URINE NEGATIVE (NEGATIVE); COLOR,URINE YELLOW; GLUCOSE, URINE NEGATIVE (NEGATIVE); KETONES,URINE NEGATIVE (NEGATIVE); LEUKOCYTE ESTERASE,URINE NEGATIVE (NEGATIVE); NITRITE,URINE NEGATIVE (NEGATIVE); PROTEIN,URINE NEGATIVE (NEGATIVE); URINE SPECIFIC GRAVITY 1.014; UROBILINOGEN,URINE NEGATIVE mg/dL (<2.0)
[2017-09-12 11:47] LABS: ALANINE AMINOTRANSFERASE 26 U/L (21-72); ALBUMIN 4.6 g/dL (3.5-5.0); ALKALINE PHOSPHATASE 33 U/L (38-126); ANION GAP 8 (5-19); ASPARTATE AMINO TRANSFERASE 38 U/L (17-59); BILIRUBIN,DIRECT 0.5 mg/dL (0.0-0.4); BILIRUBIN,TOTAL 0.9 mg/dL (0.2-1.3); BLOOD UREA NITROGEN 12 mg/dL (7-20); CALCIUM 9.7 mg/dL (8.4-10.2); CARBON DIOXIDE 32 mmol/L (22-30); CHLORIDE 103 mmol/L (98-107); GLUCOSE 88 mg/dL (75-110); LIPASE 319.2 U/L (23-300); SODIUM 142.6 mmol/L (137-145); TOTAL PROTEIN 8.3 g/dL (6.3-8.2)
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
[2017-09-12] MEDS ORDERED: CIPROFLOXACIN HCL 750 MG TABLET PO ONE (13:09)
[2017-09-12] MEDS ORDERED: ONDANSETRON 4 MG TAB.RAPDIS PO ONE (13:09)
[2017-09-12] MEDS ORDERED: METRONIDAZOLE 500 MG TABLET PO ONE (13:09)
[2017-09-12 14:12] VITALS: BP 141/96
== END 2017-09-12 14:11 | disposition home or self-care (01) ==
LOC: ER 09:40
DX: R10.32 Left lower quadrant pain (principal); F17.200 Nicotine dependence, unspecified, uncomplicated; Z87.19 Personal history of other diseases of the digestive system
CPT/HCPCS: 99284; 36415; 83690; 85025; 80053; 81001; S0119; J3490

== ENCOUNTER 2017-09-13 12:33 | Emergency (ER) | payer OTHER | END 2017-09-13 12:40 | disposition left against medical advice (07) | LOC: ER 12:33 | DX: Z53.21 Procedure and treatment not carried out due to patient leaving prior to being seen by health care provider (principal) ==

== ENCOUNTER → 2017-10-14 | Outpatient (CLI) | payer OTHER | LOC: CCC 10:37 | DX: Z00.00 Encounter for general adult medical examination without abnormal findings (principal) | CPT/HCPCS: 36415; 84153 ==

== ENCOUNTER 2019-03-05 11:02 | Emergency (ER) | payer SELFPAY ==
[2019-03-05 11:09] VITALS: BP 177/106
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
[2019-03-05] MEDS ORDERED: DEXAMETHASONE CONC 1 MG/ML SOLN PO ONE (13:09)
[2019-03-05] MEDS ORDERED: HYDROCODONE/ACETAMINOPHEN 5-325 MG TABLET PO ONE (13:09)
[2019-03-05] MEDS ORDERED: METHOCARBAMOL 500 MG TABLET PO ONE (13:09)
== END 2019-03-05 13:28 | disposition home or self-care (01) ==
LOC: ER 11:02
DX: M54.42 Lumbago with sciatica, left side (principal); F17.200 Nicotine dependence, unspecified, uncomplicated; F12.10 Cannabis abuse, uncomplicated; I10 Essential (primary) hypertension
CPT/HCPCS: 99283; J8540

== ENCOUNTER → 2019-10-09 | Outpatient (CLI) | payer OTHER ==
[2019-10-09 10:36] LABS: ABSOLUTE EOSINOPHILS # (AUTO) 0.2 10^3/uL (0.0-0.6); ABSOLUTE LYMPHOCYTES (AUTO) 1.8 10^3/uL (0.5-4.7); ABSOLUTE MONOCYTES (AUTO) 0.4 10^3/uL (0.1-1.4); ABSOLUTE NEUT (AUTO) 3.1 10^3/uL (1.7-8.2); BASOPHILS % (AUTO) 0.9 % (0-2); EOSINOPHILS % (AUTO) 3.9 % (0-6); HEMATOCRIT 46.8 % (37.9-51.0); LYMPHOCYTES % (AUTO) 32.1 % (13-45); MEAN CORPUSCULAR HEMOGLOBIN 31.7 pg (27.0-33.4); MEAN CORPUSCULAR HGB CONC 34.2 g/dL (32.0-36.0); MEAN CORPUSCULAR VOLUME 93 fl (80-97); MONOCYTES % (AUTO) 7.1 % (3-13); PLATELET COUNT 178 10^3/uL (150-450); RED BLOOD COUNT 5.04 10^6/uL (4.35-5.55); RED CELL DISTRIBUTION WIDTH 14.3 % (11.5-14.0); TOTAL CELLS COUNTED % (AUTO) 100 %; WHITE BLOOD COUNT 5.5 10^3/uL (4.0-10.5)
[2019-10-09 11:06] LABS: ALKALINE PHOSPHATASE 45 U/L (38-126); ANION GAP 5 (5-19); ASPARTATE AMINO TRANSFERASE 25 U/L (17-59); BILIRUBIN,DIRECT 0.2 mg/dL (0.0-0.4); BILIRUBIN,TOTAL 0.4 mg/dL (0.2-1.3); BLOOD UREA NITROGEN 10 mg/dL (7-20); CALCIUM 9.2 mg/dL (8.4-10.2); CARBON DIOXIDE 30 mmol/L (22-30); CHLORIDE 104 mmol/L (98-107); CHOLESTEROL 159.51 mg/dL (0-200); GLUCOSE 87 mg/dL (75-110); POTASSIUM 4.4 mmol/L (3.6-5.0); TOTAL PROTEIN 7.3 g/dL (6.3-8.2); TRIGLYCERIDES 63 mg/dL (<150)
[2019-10-09 11:17] LABS: DIRECT LDL 86 mg/dL (<100)
== END ==
LOC: CCC 09:24
DX: I10 Essential (primary) hypertension (principal)
CPT/HCPCS: 36415; 80053; 80061; 83036; 84443; 85025

== ENCOUNTER 2019-10-27 17:40 | Emergency (ER) | payer SELFPAY ==
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
[2019-10-27 18:43] LABS: ABSOLUTE EOSINOPHILS # (AUTO) 0.2 10^3/uL (0.0-0.6); ABSOLUTE LYMPHOCYTES (AUTO) 2.6 10^3/uL (0.5-4.7); ABSOLUTE MONOCYTES (AUTO) 0.6 10^3/uL (0.1-1.4); ABSOLUTE NEUT (AUTO) 6.8 10^3/uL (1.7-8.2); BASOPHILS % (AUTO) 0.4 % (0-2); EOSINOPHILS % (AUTO) 1.7 % (0-6); HEMOGLOBIN 17.3 g/dL (13.5-17.0); LYMPHOCYTES % (AUTO) 25.5 % (13-45); MEAN CORPUSCULAR HGB CONC 35.3 g/dL (32.0-36.0); MEAN CORPUSCULAR VOLUME 94 fl (80-97); MONOCYTES % (AUTO) 5.7 % (3-13); PLATELET COUNT 228 10^3/uL (150-450); RED BLOOD COUNT 5.25 10^6/uL (4.35-5.55); RED CELL DISTRIBUTION WIDTH 14.9 % (11.5-14.0); SEGMENTED NEUTROPHILS % (AUTO) 66.7 % (42-78); TOTAL CELLS COUNTED % (AUTO) 100 %; WHITE BLOOD COUNT 10.2 10^3/uL (4.0-10.5)
[2019-10-27 18:50] LABS: ALBUMIN 4.4 g/dL (3.5-5.0); ALKALINE PHOSPHATASE 42 U/L (38-126); ANION GAP 10 (5-19); ASPARTATE AMINO TRANSFERASE 28 U/L (17-59); BILIRUBIN,TOTAL 0.6 mg/dL (0.2-1.3); BLOOD UREA NITROGEN 21 mg/dL (7-20); CALCIUM 9.4 mg/dL (8.4-10.2); CARBON DIOXIDE 28 mmol/L (22-30); CHLORIDE 99 mmol/L (98-107); GLUCOSE 101 mg/dL (75-110); POTASSIUM 4.2 mmol/L (3.6-5.0); TOTAL PROTEIN 7.5 g/dL (6.3-8.2)
[2019-10-27 19:16] LABS: AMORPHOUS SEDIMENT,URINE TRACE /HPF; APPEARANCE,URINE CLOUDY; BILIRUBIN,URINE SMALL (NEGATIVE); COLOR,URINE AMBER; GLUCOSE, URINE NEGATIVE (NEGATIVE); KETONES,URINE TRACE mg/dL (NEGATIVE); LEUKOCYTE ESTERASE,URINE NEGATIVE (NEGATIVE); NITRITE,URINE NEGATIVE (NEGATIVE); PROTEIN,URINE 100 mg/dL (NEGATIVE); URINE SPECIFIC GRAVITY 1.031
[2019-10-27] MEDS: NORMAL SALINE 1000 ML 1,000 ML IV PRN ×2 (19:16→21:03)
--- NOTE | 2019-10-27 20:00 | RADIOLOGY REPORT (SQ) ---
EXAM DESCRIPTION: CT ABD/PELVIS NO ORAL OR IV IMAGES COMPLETED DATE/TIME: 10/27/2019 7:49 pm REASON FOR STUDY: LLQ abd pain, PMH diverticulitis COMPARISON: 2017 TECHNIQUE: CT scan of the abdomen and pelvis performed without intravenous or oral contrast. Images reviewed with lung, soft tissue, and bone windows. Reconstructed coronal and sagittal MPR images revi ewed. All images stored on PACS. All CT scanners at this facility use dose modulation, iterative reconstruction, and/or weight based d osing when appropriate to reduce radiation dose to as low as reasonably achievable (ALARA). [facility]: Dose Right [facility]: CareDose [facility]: Dose Right [facility]: Teradose 4D [facility]: [employer] RADIATION DOSE: CT Rad equipment meets quality standard of care and radiation dose reduction techniq ues were employed. CTDIvol: 8.7 mGy. DLP: 459 mGy-cm.mGy. LIMITATIONS: None. FINDINGS: LOWER CHEST: No significant findings. No nodules or infiltrates. NON-CONTRASTED LIVER, SPLEEN, ADRENALS: Evaluation limited by lack of IV contrast. No identified sign ificant masses. PANCREAS: No masses. No peripancreatic inflammatory changes. GALLBLADDER: Slight chronic pancreatic duct prominence. No calcifications along the duct. No peripa ncreatic fluid collections. RIGHT KIDNEY AND URETER: No solid masses. No significant calcification. No hydronephrosis or hydroure ter. LEFT KIDNEY AND URETER: No solid masses. No significant calcification. No hydronephrosis or hydrouret er. AORTA AND RETROPERITONEUM: No aneurysm. No retroperitoneal masses or adenopathy. BOWEL AND PERITONEAL CAVITY: Scattered diverticulosis throughout the large bowel. Doubt active diver ticulitis. No mechanical bowel obstruction detected. Variably thick-walled loops of small bowel pro ximally. This may represent enteritis. APPENDIX: Normal. PELVIS, BLADDER, AND ABDOMINAL WALL:Mild free fluid is suspected within the pelvis. Bladder unremark able. No abdominal wall mass or hernia. BONES: No significant findings. OTHER: No other significant finding. IMPRESSION: 1. Diverticulosis, doubt active diverticulitis. 2. Wall thickening of proximal small bowel loops. This is suggestive of enteritis. No fixed mechani jose angel obstruction detected. TECHNICAL DOCUMENTATION: JOB ID: [id number] Quality ID # [id number]: Final reports with documentation of one or more dose reduction techniques (e.g., Au tomated exposure control, adjustment of the mA and/or kV according to patient size, use of iterative reconstruction technique) 2010 [employer]- All Rights Reserved Reading location - IP/workstation name: [email or web address]
[2019-10-27] MEDS ORDERED: CIPROFLOXACIN HCL 750 MG TABLET PO ONE (20:31)
[2019-10-27] MEDS ORDERED: METRONIDAZOLE 500 MG TABLET PO ONE (20:31)
[2019-10-27 22:15] VITALS: BP 150/88
== END 2019-10-27 22:15 | disposition home or self-care (01) ==
LOC: ER 17:40
DX: K57.92 Diverticulitis of intestine, part unspecified, without perforation or abscess without bleeding (principal); F10.10 Alcohol abuse, uncomplicated; N17.9 Acute kidney failure, unspecified; E86.0 Dehydration; R10.30 Lower abdominal pain, unspecified; R10.32 Left lower quadrant pain; Z88.8 Allergy status to other drugs, medicaments and biological substances; F17.210 Nicotine dependence, cigarettes, uncomplicated; I10 Essential (primary) hypertension
CPT/HCPCS: 99284; 96360; 96361; 36415; 83690; 85025; 80053; 81001; 74176; J3490; J7030

== ENCOUNTER 2020-02-04 15:28 | Emergency (ER) | payer SELFPAY ==
[2020-02-04 15:32] VITALS: BP 167/70
[2020-02-04] MEDS ORDERED: PREDNISONE 20 MG TABLET PO ONE (15:45)
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
== END 2020-02-04 15:52 | disposition home or self-care (01) ==
LOC: ER 15:28
DX: T63.464A Toxic effect of venom of wasps, undetermined, initial encounter (principal); F17.200 Nicotine dependence, unspecified, uncomplicated; F12.10 Cannabis abuse, uncomplicated; I10 Essential (primary) hypertension; Z79.899 Other long term (current) drug therapy
CPT/HCPCS: 99281; J7512